=== PATIENT | male | born 1970 | race Caucasian/White ===

== ENCOUNTER 2019-05-16 10:41 | Day surgery (SDC) | payer BC ==
[2019-05-15 11:52] VITALS: BMI 39.3
[~2019-05-16 10:41] MED LIST: LACTATED RINGERS 1,000 ML IV SCH; SODIUM CHLORIDE 0.9% 1,000 ML IV SCH
[2019-05-16 11:03] VITALS: RESP 16; TEMP 97.8
[2019-05-16 11:18] LABS: African American GFR (CKD) >90 (>60 ml/min/1.73 sqM); Anion Gap 7 mmol/L; Blood Urea Nitrogen 15 mg/dL (9-20); Calcium 9.4 mg/dL (8.4-10.2); Carbon Dioxide 23 mmol/L (22-30); Chloride 108 mmol/L (98-107); Glucose 98 mg/dL (74-99); Non-African American GFR(CKD) >90 (>60 ml/min/1.73 sqM); Potassium 5.1 mmol/L (3.5-5.1); Sodium 138 mmol/L (137-145)
[2019-05-16] MEDS ORDERED: PROPOFOL 10 MG/ML 20 ML VIAL IV ONE (11:47)
--- NOTE | 2019-05-16 12:03 | P.PCN ---
<Ruth Ann Peralta - Last Filed: 05/16/19 12:03> Preoperative Diagnosis: Diagnosis: Persistent symptomatic atrial fibrillation Patient underwent electrical cardioversion under anesthesia A 360 J biphasic shock in the AP configuration was used to successfully converted the patient to sinus rhythm, no postconversion pause Patient is currently in sinus rhythm with rates in the 70s Patient tolerated the procedure well without any acute complications Plan Increase metoprolol to 75 mg twice a day Continue anticoagulation Follow-up with the patient in one week, hopefully he will maintain sinus rhythm and we can reassess his LV function in sinus rhythm <Rober Hughes - Last Filed: 05/16/19 12:05> Preoperative Diagnosis: We will see him this Wednesday. We will reassess his LV function to see if there is an improvement of his LV function and will initiate flecainide at least 50 mg bid twice daily he function is normal
[2019-05-16 13:07] VITALS: BP 132/72; PULSE 72
== END 2019-05-16 13:09 | disposition home or self-care (01) ==
LOC: CATHCVL 10:41
PROVIDERS: ATTEND Internal Medicine Clinical Cardiac Electrophysiology
DX: I48.19 Other persistent atrial fibrillation (principal); K08.89 Other specified disorders of teeth and supporting structures; E66.01 Morbid (severe) obesity due to excess calories; Z68.39 Body mass index [BMI] 39.0-39.9, adult; Z79.01 Long term (current) use of anticoagulants; Z79.899 Other long term (current) drug therapy; Z90.49 Acquired absence of other specified parts of digestive tract
CPT/HCPCS: 92960; 80048; J2704

== ENCOUNTER 2020-04-04 07:33 | Day surgery (SDC) | payer BC ==
[2020-03-26 16:51] VITALS: BMI 40.6
[~2020-04-04 07:33] MED LIST changes: -LACTATED RINGERS 1,000 ML IV SCH
[2020-04-04] MEDS ORDERED: SODIUM CHLORIDE 0.9% 1,000 ML IV ONE (07:42)
[2020-04-04] MEDS ORDERED: PHENYLEPHRINE 10 MG/ML VIAL ONE (09:27)
[2020-04-04] MEDS ORDERED: SUCCINYLCHOLINE CHLORIDE 100 MG/5 ML SYR IV ONE (09:27)
[2020-04-04] MEDS ORDERED: GLYCOPYRROLATE 0.2 MG/ML 2 ML VIAL ONE (09:27)
[2020-04-04] MEDS ORDERED: NEOSTIGMINE 1 MG/ML 10 ML VIAL ONE (09:27)
[2020-04-04] MEDS ORDERED: ROCURONIUM 10 MG/ML (10 ML VIAL) IV ONE (09:27)
[2020-04-04] MEDS ORDERED: FUROSEMIDE 10 MG/ML 2 ML VIAL ONE (09:27)
[2020-04-04] MEDS ORDERED: fentaNYL (PF) 50 MCG/ML 2 ML AMP ONE (09:27)
[2020-04-04] MEDS ORDERED: HEPARIN SODIUM,PORCINE 10,000 UNIT/ML 1 ML VIAL ONE (09:27)
[2020-04-04] MEDS ORDERED: MIDAZOLAM 2 MG/2 ML VIAL ONE (09:27)
[2020-04-04] MEDS ORDERED: LIDOCAINE 1% INJ 10MG/ML (20 ML MDV) ONE ×2 (09:27→09:47)
[2020-04-04] MEDS ORDERED: ONDANSETRON 4 MG/2 ML VIAL ONE (09:27)
[2020-04-04] MEDS ORDERED: PROPOFOL 10 MG/ML 20 ML VIAL IV ONE (09:27)
[2020-04-04] MEDS ORDERED: PROTAMINE SULFATE 10 MG/ML 5 ML VIAL IV ONE (09:27)
[2020-04-04] MEDS ORDERED: LIDOCAINE 1% INJ 10MG/ML (20 ML MDV) SQ ONE (10:37)
[2020-04-04] MEDS ORDERED: HEPARIN SOD,PORK IN 0.45% NACL 25,000 UNIT in 0.45% NACL 1 250ML.BAG IV ONE (10:45)
[2020-04-04] MEDS ORDERED: LACTATED RINGERS 1,000 ML IV ONE (11:05)
[2020-04-04] MEDS ORDERED: HEPARIN SODIUM (1,000 UNIT/ML) 1,000 UNIT in SODIUM CHLORIDE 0.9% 1,000 ML IRRIGATION ONE ×2 (12:20→15:15)
[2020-04-04] MEDS ORDERED: IOPAMIDOL-370 100ML BTL INJ ONE (12:23)
[2020-04-04] MEDS ORDERED: ACETAMINOPHEN IV (For NPO) 1,000 MG in EMPTY BAG 1 BAG IVPB ONE (15:51)
[2020-04-04] MEDS ORDERED: ACETAMINOPHEN TAB 325 MG TAB PO PRN (15:51)
[2020-04-04] MEDS ORDERED: HYDROcodone/APAP 5-325MG 1 EACH TAB PO PRN (15:51)
--- NOTE | 2020-04-04 16:05 | P.EPPROC ---
- EP Procedure Note Electrophysiology Procedure Note: Procedure A. fib ablation, persistent, associated with cardio myopathy Diagnosis Atrial fibrillation, symptomatic, refractory to therapy persistent, associated with cardio myopathy Result No left atrial appendage mass seen on intracardiac echo Successful A. fib ablation/pulmonary vein isolation of all veins using cryo- ablation Complete entrance block in all 4 veins confirmed No evidence for phrenic nerve injury Linear ablation posterior septum, posterior to the transseptal puncture site Related ablation of the roof of the LAD Linear ablation mitral isthmus Voltage mapping and high output pacing over RF line's to ensure completeness of ablation Esophageal deflection YES Electrical cardioversion with a synchronized shock across the chest YES Procedure details Patient was brought to the EP lab in a fasting state. Written informed consent was obtained prior to the procedure. Procedure performed under general anesthesia After initial muscle relaxant use, muscle relaxants were not given thereafter in order to assess phrenic nerve during procedure. Patient prepped and draped as per protocol Full cryo-set up with standard preparation of the cryoablation tools done. Femoral Venous access obtained on the right and left groins Venous and arterial Sheaths placed. Diagnostic catheters for the high right atrium, phrenic nerve stimulation and pacing, His bundle, RV and coronary sinus placed Intracardiac echo catheter placed. Long sheath placed in the right atrium Left and right transseptal catheterization performed under intracardiac echo guidance. Intravenous heparin with aCT above 300 Later, catheter positioning and balloon positioning in the left atrium, under intracardiac echo guidance Diagnostic EP study with Coronary sinus pacing and recording Baseline measurements QRS 91, OR interval 168 ms, sinus cycle length 911 ms and QT interval 427 ms Atrial pacing performed from the high right atrium and the coronary sinus Transseptal catheterization performed RA pressure 15/9/12 LA pressure 19/10/70 Transseptal catheterization performed with standard sheath. The cryoablation sheath was then placed with an over the wire exchange without any acute complications. All 4 pulmonary veins were isolated in the following sequence: Left superior f ollowed by left inferior followed by right superior followed by right inferior The cryo-ablation balloon was placed at the os of each vein 1.5 mL of IV dye was injected to confirm an occluded vein Goal during cryoablation was to achieve complete occlusion of the pulmonary vein, achieve -30 degrees C at 30 seconds and achieve -40 degrees C at 60 seconds and a time to effect of less than 60-90 seconds, . If not the balloon was repositioned to obtain this result After completion of Cryoblation with durations from 180-240 seconds, entrance block was confirmed with the Attain circular catheter in a roving fashion around the antrum of the pulmonary veins Phrenic nerve pacing was performed from the SVC, right innominate vein area and diaphragm voltage was monitored. Diaphragmatic contractions were also monitored manually for strength of contraction. Parameter goals for each cryo freeze Complete occlusion of the appropriate vein -30 degrees C by 30 seconds -40 degrees C by 60 seconds Minimum between minus 40-55 degrees C Thaw time greater than 10 seconds Balloon visualized by intracardiac echo The esophagus was intubated. Esophageal Temperature monitoring with a CIRCA catheter formed. Esophageal deflection for hypothermia of the esophagus below 30 degrees C Left superior pulmonary vein Complete isolation, entrance block Left inferior pulmonary vein Complete isolation, entrance block Right superior pulmonary vein, during phrenic nerve pacing Complete isolation, entrance block Right inferior pulmonary vein, during phrenic nerve pacing Complete isolation, entrance block At the end of the procedure the Achieve catheter was once again used to check for entrance block Phrenic nerve stimulation was performed to confirm diaphragmatic stimulation the end of the procedure Cine fluoroscopy was performed at the very end of the procedure to confirm movement of both diaphragms with inspiration and expiration The cryo sheath was exchanged for a standard sheath RF mapping and ablation catheter was placed 3-D anatomic mapping was performed The veins are completely isolated With the catheter was manipulated in the anterior LA wall close to the roof, somewhat organized atrial fibrillation was induced Mapping was performed new areas of atrial fibrillation noted in other areas of organized atrial activity The roof appear to be involved and the left side of the roof showed atrial fibrillation on intracardiac electrograms Linear ablation of the left atrial roof was performed. This was a long roof diagnoses the patient had a dilated left atrium Complete anatomic line was made This was later interrogated with both high output pacing as well as with voltage mapping once the patient was in sinus rhythm at the end of the procedure and completeness of the line was ensured Linear ablation along the posterior septum from the roof down to the right inferior pulmonary vein. Scar mapping and high output pacing was performed to ensure completeness of the line when in sinus rhythm His ultrasound organization The mitral isthmus line was made This is also completed and once in sinus rhythm would a mapping was performed as well as high output pacing was performed interrogated Once this line was made the patient had 2 different atrial tachycardia and earliest activation site was in the anterior septum This seemed to be Cipriano reentrant circuit in this area and RF ablation was performed, focal ablation. This is close to the mitral annulus and RF ablation was extended to the mitral annulus anteriorly Patient remained in atrial fibrillation after this after being in organized rhythm Electrical cardioversion performed The pulmonary veins and RF lines were interrogated and found to be complete At the end of the procedure the patient was extubated Heparin was reversed Venous sheaths were removed and hemostasis assured Procedures performed (PVI - CRYO Ablation) Diagnostic EP study CS pacing and recording Left and right transseptal catheterization Catheter the mapping of the tachycardia (NOT 3D mapping) Intracardiac echocardiography Pulmonary vein isolation with transseptal and comprehensive EPS, [id number] Left atrial roof line, +[id number] Linear ablation, left atrium septum, +[id number] Linear ablation for mitral reentry Focal ablation inferior anterior LA wall Electrical cardioversion with a synchronized shock across the chest [id number]
--- NOTE | 2020-04-04 16:08 | P.PRLE ---
RE: Jer Dimas Dear Dr. Gino Randle has experienced breakthrough episodes of atrial fibrillation on flecainide. During persistent atrial fibrillation he developed a cardiomyopathy which has resolved with rhythm control of A. fib Brought in today for an A. fib ablation. Pulmonary vein isolation and linear ablation was performed in the left atrium in the septum, left atrial roof and mitral isthmus. Focal ablation was performed in the anterior LA wall This was a long extended procedure At this time I would continue ELIQUIS and reduce the dose of flecainide to 50 mrem twice daily Intracardiac echocardiography revealed normalized LV systolic function I will see him again in follow-up in a week's time Thank you for entrusting me with the care of the patient Warm regards Sincerely Rober Hughes
[2020-04-04] MEDS ORDERED: HYDROmorphone 0.5 MG/0.5 ML SYRINGE IVP ONE (16:27)
[2020-04-04] MEDS: APIXABAN 5 MG TAB PO SCH (20:02)
[2020-04-04] MEDS: FLECAINIDE 50 MG TAB PO SCH (20:02)
[2020-04-04 20:14] VITALS: RESP 18
[2020-04-05 08:07] VITALS: BP 128/84; PULSE 87; TEMP 98.2
[2020-04-05] MEDS: APIXABAN 5 MG TAB PO SCH (08:54)
[2020-04-05] MEDS: FLECAINIDE 50 MG TAB PO SCH (08:54)
[2020-04-05] MEDS ORDERED: METOPROLOL SUCCINATE (ER) 50 MG TAB.ER.24H PO SCH (09:00)
--- NOTE | 2020-04-05 10:34 | P.DS ---
Providers Date of admission: 03/25/2020 Attending physician: Rober Hughes Primary care physician: Saleem Christian MD Hospital Course: The patient is a 49-year-old male with past medical history of persistent atrial fibrillation and tachycardia induced cardiomyopathy, who electively presented for atrial fibrillation ablation. The patient went through an extensive cryoablation with linear ablation on the posterior septum, linear roof ablation in the left atrium, and linear ablation of the mitral isthmus. The patient tolerated the procedure well and recovered in observation overnight. On exam this morning, the patient is resting comfortably in bed. He denies any chest pain or chest pressure. No shortness of breath, palpitations, dizziness or vertigo. He does have some tenderness in his right groin. He also reports a mildly sore throat. GENERAL: Well-appearing, well-nourished obese male in no acute distress. NECK: Supple without JVD or thyromegaly. LUNGS: Breath sounds clear to auscultation bilaterally. Respiration equal and unlabored. No wheezes, rales or rhonchi. HEART: Regular rate and rhythm without murmurs, rubs or gallops. S1 and S2 heard. EXTREMITIES: Normal range of motion, no edema. No clubbing or cyanosis. Peripheral pulses intact and strong. Bilateral groin sites are dry and intact. Mild tenderness to palpation. No hematoma. VITALS: Blood pressure 128/84, heart rate 87, temp 98.2, respiratory rate 18 TELEMETRY: Sinus mechanism IMPRESSION: #1 persistent atrial fibrillation, status post cryo and linear ablations #2 history of arrhythmia induced cardiomyopathy PLAN: Reduce flecainide 50 mg twice daily Continue all other cardiac medications including anticoagulation Follow-up in the office in 1-2 weeks Procedures: Pulmonary vein isolate and linear radiofrequency ablation Plan - Discharge Summary Discharge Rx Participant: Yes New Discharge Prescriptions: New Flecainide [Tambocor] 50 mg PO Q12HR #180 tablet Discontinued Flecainide Acetate [Tambocor] 100 mg PO Q12HR No Action Apixaban [Eliquis] 5 mg PO BID Metoprolol Succinate (ER) [Toprol Xl] 50 mg PO DAILY Discharge Medication List Apixaban [Eliquis] 5 mg PO BID 05/15/19 [History] Metoprolol Succinate (ER) [Toprol Xl] 50 mg PO DAILY 03/26/20 [History] Flecainide [Tambocor] 50 mg PO Q12HR #180 tablet 04/04/20 [Rx] Follow up Appointment(s)/Referral(s): Rober Hughes MD [STAFF PHYSICIAN] - 1 Week (1-[address] Hughes or nurse practitoner)
== END 2020-04-05 12:22 | disposition home or self-care (01) ==
LOC: CATHEP 07:33 → 1SOBS 15:40 → CATHEP 04-05 12:22
PROVIDERS: ATTEND Internal Medicine Clinical Cardiac Electrophysiology
DX: I48.19 Other persistent atrial fibrillation (principal); I42.9 Cardiomyopathy, unspecified; E66.01 Morbid (severe) obesity due to excess calories; Z79.01 Long term (current) use of anticoagulants; Z79.899 Other long term (current) drug therapy; Z90.49 Acquired absence of other specified parts of digestive tract; Z68.41 Body mass index [BMI] 40.0-44.9, adult
CPT/HCPCS: 85347; 92960; 93662; 93613; 93656; 93657; C1759; C1769 ×5; C1894 ×2; C1730 ×2; C1893; C1733; C1766; C1732; J2250; J2720; J1644 ×3; J1940; J2370; J2710; J2405; J2001; J3010; J0330; J2704; J1170; Q9967

== ENCOUNTER → 2020-05-07 | Outpatient (CLI) | payer BC ==
[2020-05-07 15:43] LABS: HCT 42.1 % (39.0-53.0); HGB 14.8 gm/dL (13.0-17.5); MCH 31.7 pg (25.0-35.0); MCHC 35.1 g/dL (31.0-37.0); MCV 90.3 fL (80.0-100.0); Mean Platelet Volume 6.9; Platelet Count 224 k/uL (150-450); RBC 4.66 m/uL (4.30-5.90); RDW 13.3 % (11.5-15.5); WBC 7.8 k/uL (3.8-10.6)
== END | disposition home or self-care (01) ==
LOC: LABPAT 14:29
PROVIDERS: ATTEND Internal Medicine Clinical Cardiac Electrophysiology
DX: Z01.818 Encounter for other preprocedural examination (principal); I48.19 Other persistent atrial fibrillation
CPT/HCPCS: 36415; 85027

== ENCOUNTER 2020-05-09 10:36 | Day surgery (SDC) | payer BC ==
[2020-05-07 08:40] VITALS: BMI 40.6
[2020-05-09 11:09] VITALS: TEMP 98
[2020-05-09] MEDS ORDERED: PROPOFOL 10 MG/ML 20 ML VIAL IV ONE (11:24)
[2020-05-09] MEDS ORDERED: LIDOCAINE 1% INJ 10MG/ML (20 ML MDV) ONE (11:24)
--- NOTE | 2020-05-09 11:48 | P.EPPROC ---
- EP Procedure Note Electrophysiology Procedure Note: Diagnosis Atrial tachycardia with 2-1 AV block with RVR, unresponsive to medical treatment Patient status post PVI and linear ablation in the left atrium Electrical cardioversion Under conscious sedation with anesthesia in attendance, and electrical cardioversion was performed with a 360 J biphasic shock in the AP configuration Successful conversion to sinus rhythm Plan Continue anticoagulation continue low-dose flecainide Follow Dr. Hughes in one month
[2020-05-09 12:42] VITALS: BP 132/77; RESP 16
[2020-05-09 12:44] VITALS: PULSE 88
== END 2020-05-09 12:40 | disposition home or self-care (01) ==
LOC: CATHEP 10:36
PROVIDERS: ATTEND Internal Medicine Clinical Cardiac Electrophysiology
DX: I48.19 Other persistent atrial fibrillation (principal); I42.0 Dilated cardiomyopathy; S30.1XXA Contusion of abdominal wall, initial encounter; E66.9 Obesity, unspecified; Z79.899 Other long term (current) drug therapy; Z79.01 Long term (current) use of anticoagulants; Z88.5 Allergy status to narcotic agent; Z68.41 Body mass index [BMI] 40.0-44.9, adult; X58.XXXA Exposure to other specified factors, initial encounter
CPT/HCPCS: 93005; 92960; J2001; J2704

== ENCOUNTER 2020-07-25 10:39 | Day surgery (SDC) | payer BC ==
[2020-07-22 08:56] VITALS: BMI 40.6
[~2020-07-25 10:39] MED LIST changes: +LACTATED RINGERS 1,000 ML IV SCH
[2020-07-25] MEDS ORDERED: SODIUM CHLORIDE 0.9% 1,000 ML IV ONE ×2 (10:56→14:20)
[2020-07-25 11:47] LABS: African American GFR (CKD) >90 (>60 ml/min/1.73 sqM); Anion Gap 8 mmol/L; Blood Urea Nitrogen 18 mg/dL (9-20); Calcium 9.6 mg/dL (8.4-10.2); Carbon Dioxide 23 mmol/L (22-30); Chloride 108 mmol/L (98-107); Glucose 92 mg/dL (74-99); Non-African American GFR(CKD) >90 (>60 ml/min/1.73 sqM); Potassium 4.8 mmol/L (3.5-5.1); Sodium 139 mmol/L (137-145)
[2020-07-25] MEDS ORDERED: ONDANSETRON 4 MG/2 ML VIAL ONE (12:20)
[2020-07-25] MEDS ORDERED: MIDAZOLAM 2 MG/2 ML VIAL ONE (12:20)
[2020-07-25] MEDS ORDERED: NEOSTIGMINE 1 MG/ML 10 ML VIAL ONE (12:20)
[2020-07-25] MEDS ORDERED: PHENYLEPHRINE-0.9% NACL SYG 1,000 MCG/10 ML SYRINGE ONE (12:20)
[2020-07-25] MEDS ORDERED: fentaNYL (PF) 50 MCG/ML 2 ML AMP ONE (12:20)
[2020-07-25] MEDS ORDERED: HEPARIN SODIUM,PORCINE 10,000 UNIT/ML 1 ML VIAL ONE (12:20)
[2020-07-25] MEDS ORDERED: ROCURONIUM 10 MG/ML (5 ML VIAL) IV ONE (12:20)
[2020-07-25] MEDS ORDERED: LIDOCAINE 1% INJ 10MG/ML (20 ML MDV) ONE ×3 (12:20→13:49)
[2020-07-25] MEDS ORDERED: PROPOFOL 10 MG/ML 20 ML VIAL IV ONE (12:20)
[2020-07-25] MEDS ORDERED: ceFAZolin 1,000 MG VIAL ONE (12:20)
[2020-07-25] MEDS ORDERED: PROTAMINE SULFATE 10 MG/ML 5 ML VIAL IV ONE (12:20)
[2020-07-25] MEDS ORDERED: GLYCOPYRROLATE 0.2 MG/ML 2 ML VIAL ONE (12:20)
[2020-07-25] MEDS ORDERED: SUCCINYLCHOLINE CHLORIDE 100 MG/5 ML SYR IV ONE (12:20)
[2020-07-25] MEDS ORDERED: FUROSEMIDE 10 MG/ML 2 ML VIAL ONE (12:20)
[2020-07-25] MEDS ORDERED: SODIUM CHLORIDE 0.9% 100 ML BAG ONE (12:20)
[2020-07-25] MEDS ORDERED: HEPARIN SOD,PORK IN 0.45% NACL 25,000 UNIT in 0.45% NACL 1 250ML.BAG IV ONE ×2 (13:06)
[2020-07-25] MEDS ORDERED: LIDOCAINE 1% INJ 10MG/ML (20 ML MDV) SQ ONE (13:09)
[2020-07-25] MEDS ORDERED: HEPARIN SODIUM (1,000 UNIT/ML) 1,000 UNIT in SODIUM CHLORIDE 0.9% 1,000 ML IRRIGATION ONE (15:20)
[2020-07-25] MEDS ORDERED: ACETAMINOPHEN TAB 325 MG TAB PO PRN (18:24)
[2020-07-25] MEDS ORDERED: ACETAMINOPHEN IV (For NPO) 1,000 MG in EMPTY BAG 1 BAG IVPB ONE (18:29)
--- NOTE | 2020-07-25 19:00 | P.EPPROC ---
- EP Procedure Note Electrophysiology Procedure Note: Indication Atrial tachycardia following successful A. fib ablation, refractory to medical treatment including flecainide He underwent successful pulmonary and isolation, ablation of the posterior left atrial septum, left atrial roof and mitral isthmus, previously At that time elected cardioversion was performed for persistent atrial fibrillation Procedures performed Diagnostic EP study CS pacing and recording 3-D electro-anatomic mapping RF ablation of epicardial atrial tachycardia RF ablation in the roof, linear RF ablation between the right superior and right inferior pulmonary veins, linear, both anterior and posterior RF ablation in the anterior septum Transseptal catheterization Intracardiac echo Electrical cardioversion at the end of the procedure Radiographic evaluation of the esophagus and esophageal deflection Post procedure Diagnosis Epicardial atrial tachycardia in the upper left atrial posterior wall area, refractory to endocardial ablation Details Patient was in an atrial tachycardia the start of the study with upright T waves in V1 and upright P waves in the inferior leads and upright in lead 1 Venous access in the left and right femoral veins. Venous sheaths were placed. Mapping and ablation cath was intracardiac echo catheter is diagnostic cath was placed in the high right atrium coronary sinus His bundle area Pentaray catheter and RF ablation catheter placed Coronary sinus access was very difficult from the femoral veins and therefore a 6-Romansh sheath was placed in the left axillary vein. Via this a diagnostic CS cath was placed in the coronary sinus with comfortably Atrial tachycardia cycle length to 75 ms. Later sinus cycle length 953 ms ER interval 170 ms QRS 91 ms and QT 423 ms AH interval 76 ms and HV interval 48 ms The tachycardia appeared to be a left atrial tachycardia. The coronary sinus electrograms were neither eccentric nonconcentric Intracardiac echocardiography was performed. No masses in the left atrial appendage No pericardial effusion Preserved LV systolic function in the left ventricle Fossa ovalis identified Transseptal access obtained Sheath exchanged for Vizigo sheaths later Pentaray catheter placed in the left atrium Detailed electrical anatomic mapping of the left atrium performed Voltage mapping performed Activation mapping performed Pulmonary veins were completely isolated from previous ablation There appeared to be a gap In the left atrial roof line with the earliest activation just behind the left atrial roof line in the upper part of the mid posterior wall in juxtaposition to the roof Slightly anterior RF line was made along the roof with an irrigated tip catheter, 25 W, Vizigo sheath Good power would contact force and good stability achieved A complete RF line of block was made the tachycardia cycle length changed minimally. The activation pattern did not change either Therefore repeat electro-anatomic mapping was performed and this time it appeared to be a somewhat broad focal area of activation in the upper posterior wall chest behind the roof line. This area of activation was seen even in the previous mapped since it was so close to the roof and that there was a gap in the roof line it appeared to be simply a left atrial roof tachycardia. However this time it appeared to be a broad focal area of activation. Unipolar electrograms here with deep negative and sharply negative The esophagus was identified with the barium study. This was just a hint of mid left atrium and an endoscope was placed in the esophagus was deflected first words the right side and later towards the left side RF ablation was applied at the earliest site within was brought area of activation with unipolar electrograms were negative taking care that fever away from the esophagus. RF ablation the side did not result in any lengthening of the tachycardia nor didn't result in termination Therefore the decision was made to encircle this earliest activation site. The esophagus was deflected the other way and the site was successfully and completely encircled with RF ablations. This line was joint to the right superior pulmonary vein posterior Despite that the tachycardia continued RF ablations applied within this area away from the esophagus with a power of about 25 W This tachycardia did not terminate Repeat 3 to L after anatomic mapping was performed in the left atrium and also in the right atrium and it appeared that the earliest site was in the left atrium, posterior to the roof in the upper posterior wall. We specifically sought for cavo tricuspid reentry there was no evidence for cavo tricuspid reentry. The post pacing interval was greater than 100 ms and the activation mapping did not support carlos alberto- tricuspid reentry There was evidence of electrical activity in between the right superior and right inferior pulmonary veins in the umberto and anteriorly as well as posteriorly ablation was performed and the umberto between the right and left pulmonary veins was isolated This septum was mapped in the upper septum was also ablated in the left atrium in areas There was no evidence for carlos alberto mitral reentry either Electrical cardioversion was performed. A 360 J biphasic shock converted the patient sinus rhythm All catheters were then removed and patient was transferred back to telemetry. Patient received IV heparin through the procedure There was no evidence for any pericardial effusion on intracardiac echo, at the end of study Radiographic evaluation of the esophagus was performed after completion. There was no evidence for esophageal ulceration tear or perforation Barium was successfully suctioned out from the esophagus at the end of the procedure, prior to extubation
[2020-07-25] MEDS: DRONEDARONE 400 MG TAB PO SCH (20:01)
[2020-07-25] MEDS: APIXABAN 5 MG TAB PO SCH (20:13)
[2020-07-26] MEDS: DRONEDARONE 400 MG TAB PO SCH (07:21)
[2020-07-26] MEDS: APIXABAN 5 MG TAB PO SCH (07:21)
--- NOTE | 2020-07-26 07:32 | P.DS ---
Providers Attending physician: Rober Hughes Primary care physician: [facility] Course: Patient is doing fairly well. He is a mild backache and mild sore throat but he has no chest discomfort no pleuritic chest discomfort No dizziness lightheadedness no shortness of breath He is ambulating around the room The sutures in the groins have been removed. No swelling no tenderness 40 catheter is out On examination afebrile 97.7F, pulse rate in the 80s sinus mechanism on teleme try Blood pressure 118/69 and 111/75 mmHg Breath sounds are clear no rhonchi no crackles Normal heart sounds normal S1 normal S2 no murmurs Extremities warm no edema Impression Epicardial atrial tachycardia in the upper posterior wall just posterior to the LAD roofline This is is residual atrial tachycardia after a complete A. fib ablation Pulmonary veins remain isolated The previous roofline did have a gap in the mid segment and this was completed but the tachycardia continue since it is a separate and distinct tachycardia in the upper, posterior LA wall Failed flecainide History of tachycardia and bradycardia myopathy with improvement in LV systolic function now Suggest Continue ELIQUIS 5 mg twice daily Switched to Multaq 400 mg twice daily Hold metoprolol Discontinue flecainide completely I will see him again in about a week Plan - Discharge Summary Discharge Rx Participant: No New Discharge Prescriptions: Discontinued Metoprolol Succinate (ER) [Toprol Xl] 75 mg PO DAILY Flecainide [Tambocor] 100 mg PO Q12HR #180 tablet No Action Apixaban [Eliquis] 5 mg PO BID Discharge Medication List Apixaban [Eliquis] 5 mg PO BID 05/15/19 [History] Follow up Appointment(s)/Referral(s): Rober Hughes MD [STAFF PHYSICIAN] - 1 Week Activity/Diet/Wound Care/Special Instructions: My EP instructions Post EP study - Ablation instructions 1. Keep access sites dry for 2 days. 2. No heavy lifting or straining for 2 days. 3. Avoid bending the hips repeatedly for 2 days. 4. You may go up and down stairs slowly Call if the following is noted 1. Bleeding, increasing swelling or pain at the access sites. 2. Increasing chest discomfort, especially upon taking a deep breath. 3. Increasing shortness of breath, at rest or with exertion. 4. Undue cough / phlegm 5. Difficulty or pain while swallowing. 6. Pain or change in color in the extremities. 7. Fever, chills, rigors. 8. Increasing headache or neurologic symptoms. 9. Dizziness, fainting, palpitations Start flecainide Start Multaq stop metoprolol Discharge Disposition: HOME SELF-CARE
[2020-07-26 14:51] VITALS: BP 116/75; PULSE 81; RESP 16; TEMP 97.9
== END 2020-07-26 15:10 | disposition home or self-care (01) ==
LOC: CATHEP 10:39 → 6NMEDSUR 18:33 → CATHEP 07-26 15:10
PROVIDERS: ATTEND Internal Medicine Clinical Cardiac Electrophysiology
DX: I47.1 Supraventricular tachycardia (principal); I48.19 Other persistent atrial fibrillation; I42.9 Cardiomyopathy, unspecified; Z79.01 Long term (current) use of anticoagulants; Z79.899 Other long term (current) drug therapy
CPT/HCPCS: 85347; 92960; 93662; 93613; 93653; 93655; 80048; 87635; C1894; C1769 ×4; C1766; C1730 ×2; C1731; C1759; C1893; C1732; J2001; J1644 ×2; J0131

== ENCOUNTER 2023-08-28 12:38 | Inpatient (IN) | payer BC ==
--- NOTE | 2023-08-28 13:06 | ED ---
General Adult HPI - General Chief complaint: Weakness Stated complaint: Dizziness-Holter monitor Time Seen by Provider: 08/28/23 12:50 Source: patient Mode of arrival: ambulatory Limitations: no limitations - History of Present Illness Initial comments: 53-year-old male with past medical history of A-fib who presents emergency department reporting near syncope. He reports that he had a significant episode on Wednesday. He saw his back closer on who placed him on a heart monitor. He has intermittent A-fib. He has had previous cardiac ablations and cardioversions. He takes Multaq 400 mg twice daily and Eliquis. States has b een compliant with his medications. Today the patient had another significant episode of dizziness and near syncope and therefore decided to come into the emergency department for evaluation. Denies any chest pain. No recent medication changes. - Related Data Home Medications Medication Instructions Recorded Confirmed Apixaban [Eliquis] 5 mg PO BID 05/15/19 08/28/23 Dronedarone [Multaq] 400 mg PO BID-W/MEALS 08/28/23 08/28/23 Sildenafil Citrate 50 mg PO DAILY PRN 08/28/23 08/28/23 Spironolactone [Aldactone] 25 mg PO DAILY 08/28/23 08/28/23 Allergies Allergy/AdvReac Type Severity Reaction Status Date / Time No Known Allergies Allergy Verified 08/28/23 15:16 Review of Systems ROS Statement: Those systems with pertinent positive or pertinent negative responses have been documented in the HPI. ROS Other: All systems not noted in ROS Statement are negative. Past Medical History Past Medical History: Atrial Fibrillation, Hyperlipidemia, Hypertension Additional Past Medical History / Comment(s): PANCREATITIS 01/01/14, see Dr Hughes H & P History of Any Multi-Drug Resistant Organisms: None Reported Past Surgical History: Cardiac Ablation, Cholecystectomy Additional Past Surgical History / Comment(s): 01/01/14, cardioversion Past Anesthesia/Blood Transfusion Reactions: Previous Problems w/ Anesthesia, Motion Sickness, Postoperative Nausea & Vomiting (PONV) Additional Past Anesthesia/Blood Transfusion Reaction / Comment(s): MORPHINE C AUSES AGITATION, RESTLESSNESS, INSOMNIA Past Psychological History: No Psychological Hx Reported Smoking Status: Never smoker Past Alcohol Use History: None Reported Past Drug Use History: None Reported - Past Family History Mother Family Medical History: Congestive Heart Failure (CHF), Diabetes Mellitus General Exam Limitations: no limitations General appearance: alert, in no apparent distress Head exam: Present: atraumatic, normocephalic, normal inspection Eye exam: Present: normal appearance, PERRL, EOMI. Absent: scleral icterus, conjunctival injection, periorbital swelling ENT exam: Present: normal exam, mucous membranes moist Neck exam: Present: normal inspection. Absent: tenderness, meningismus, lymphadenopathy Respiratory exam: Present: normal lung sounds bilaterally. Absent: respiratory distress, wheezes, rales, rhonchi, stridor Cardiovascular Exam: Present: regular rate, normal rhythm, normal heart sounds. Absent: systolic murmur, diastolic murmur, rubs, gallop, clicks GI/Abdominal exam: Present: soft, normal bowel sounds. Absent: distended, tenderness, guarding, rebound, rigid Extremities exam: Present: normal inspection, full ROM, normal capillary refill. Absent: tenderness, pedal edema, joint swelling, calf tenderness Back exam: Present: normal inspection Neurological exam: Present: alert, oriented X3, CN II-XII intact Psychiatric exam: Present: normal affect, normal mood Skin exam: Present: warm, dry, intact, normal color. Absent: rash Course Vital Signs 08/28/23 08/28/23 08/28/23 12:43 13:09 15:00 Temperature 98 F Pulse Rate 90 97 89 Respiratory 20 18 16 Rate Blood Pressure 117/84 117/84 117/84 O2 Sat by Pulse 98 96 98 Oximetry 08/28/23 08/28/23 08/28/23 16:00 17:00 18:00 Temperature Pulse Rate 136 H 87 90 Respiratory 18 18 13 Rate Blood Pressure 127/87 116/79 116/83 O2 Sat by Pulse 96 97 96 Oximetry 08/28/23 08/28/23 08/28/23 19:18 21:00 22:35 Temperature Pulse Rate 90 89 89 Respiratory 19 19 19 Rate Blood Pressure 117/91 123/86 107/78 O2 Sat by Pulse 97 95 97 Oximetry Medical Decision Making - Medical Decision Making Was pt. sent in by a medical professional or institution (, PA, LOOP TACKER, urgent care, hospital, or fdc...) When possible be specific @ -No Did you speak to anyone other than the patient for history (EMS, parent, family, police, friend...)? What history was obtained from this source @ -With the patient's for history Did you review nursing and triage notes (agree or disagree)? Why? @ -I reviewed and agree with nursing and triage notes Were old charts reviewed (outside hosp., previous admission, EMS record, old EKG, old radiological studies, urgent care reports/EKG's, fdc records)? Report findings @ -No old charts were reviewed Differential Diagnosis (chest pain, altered mental status, abdominal pain women, abdominal pain men, vaginal bleeding, weakness, fever, dyspnea, syncope, headache, dizziness, GI bleed, back pain, seizure, CVA, palpatations, mental health, musculoskeletal)? @ -Differential Palpitations Ventricular arrhythmias, atrial arrhythmias, myocardial infarction, anemia, thyrotoxicosis, electrolyte imbalance, hypokalemia, pulmonary embolism, pulmonary disease, drugs, alcohol, anxiety, stress.... This is not meant to be an all-inclusive list. EKG interpreted by me (3pts min.). @ -Yes and demonstrates sinus rhythm with rate of 90. IL interval 191. QRS 94 . QTc of 405. No acute ST segment elevations or depressions X-rays interpreted by me (1pt min.). @ -Yes and demonstrates no acute process CT interpreted by me (1pt min.). @ -None done U/S interpreted by me (1pt. min.). @ -None done What testing was considered but not performed or refused? (CT, X-rays, U/S, labs)? Why? @ -None What meds were considered but not given or refused? Why? @ -None Did you discuss the management of the patient with other professionals (professionals i.e. , PA, LOOP TACKER, lab, RT, psych nurse, social work faculty member, military exchange wireless manager, teacher, licensed mortgage loan officer, leather case finisher)? Give summary @ -Spoke with Dr. Grant. He recommended giving the patient metoprolol 25 twice daily. States the patient may need an amiodarone drip if the Lopressor does not work Was smoking cessation discussed for >3mins.? @ -No Was critical care preformed (if so, how long)? @ -Yes, 35 minutes for management of rapid A-fib and nonsustained V. tach Were there social determinants of health that impacted care today? How? (Homelessness, low income, unemployed, alcoholism, drug addiction, transportation, low edu. Level, literacy, decrease access to med. care, group home, rehab)? @ -No Was there de-escalation of care discussed even if they declined (Discuss DNR or withdrawal of care, Hospice)? DNR status @ -No What co-morbidities impacted this encounter? (DM, HTN, Smoking, COPD, CAD, Cancer, CVA, ARF, Chemo, Hep., AIDS, mental health diagnosis, sleep apnea, morbid obesity)? @ -A-fib Was patient admitted / discharged? Hospital course, mention meds given and route, prescriptions, significant lab abnormalities, going to OR and other pertinent info. @ -Upon arrival patient seen and evaluated in room 2. Thorough history and physical exam was performed. Patient does have intermittent beats of rapid A- fib however he also has notable episodes of V. tach. Longest seen was 12 beats. Patient remains on the personnel monitor. He is placed on the ZOLL monitor. I did speak with Dr. Grant who recommends adding metoprolol 25 twice daily to the patient. He will be admitted. Patient agreeable to admission. Undiagnosed new problem with uncertain prognosis? @ -Yes Drug Therapy requiring intensive monitoring for toxicity (Heparin, Nitro, Insulin, Cardizem)? @ -No Were any procedures done? @ -No Diagnosis/symptom? @ -Near syncope, paroxysmal A-fib, nonsustained V. tach Acute, or Chronic, or Acute on Chronic? @ -Acute Uncomplicated (without systemic symptoms) or Complicated (systemic symptoms)? @ -Complicated Side effects of treatment? @ -No Exacerbation, Progression, or Severe Exacerbation? @ -No Poses a threat to life or bodily function? How? (Chest pain, [place], [place], pneumonia, PE, COPD, DKA, ARF, appy, cholecystitis, CVA, Diverticulitis, Homicidal, Suicidal, threat to staff... and all critical care pts) @ -Yes as patient is having several episodes of nonsustained A. tach - Lab Data Result diagrams: 08/30/23 03:11 08/29/23 20:18 Lab Results 08/28/23 08/28/23 08/28/23 Range/Units 12:57 12:57 12:57 WBC 8.4 (3.8-10.6) k/uL RBC 4.60 (4.30-5.90) m/uL Hgb 14.0 (13.0-17.5) gm/dL Hct 42.8 (39.0-53.0) % MCV 93.0 (80.0-100.0) fL MCH 30.5 (25.0-35.0) pg MCHC 32.8 (31.0-37.0) g/dL RDW 12.8 (11.5-15.5) % Plt Count 234 (150-450) k/uL MPV 7.1 Neutrophils % 70 % Lymphocytes % 22 % Monocytes % 5 % Eosinophils % 2 % Basophils % 0 % Neutrophils # 5.8 (1.3-7.7) k/uL Lymphocytes # 1.8 (1.0-4.8) k/uL Monocytes # 0.4 (0-1.0) k/uL Eosinophils # 0.1 (0-0.7) k/uL Basophils # 0.0 (0-0.2) k/uL PT 11.3 (10.0-12.5) sec INR 1.0 (<1.2) APTT 27.4 (22.0-30.0) sec Sodium 139 (137-145) mmol/L Potassium 4.1 (3.5-5.1) mmol/L Chloride 113 H (98-107) mmol/L Carbon Dioxide 20 L (22-30) mmol/L Anion Gap 6 mmol/L BUN 16 (9-20) mg/dL Creatinine 0.85 (0.66-1.25) mg/dL Est GFR (CKD-EPI)AfAm >90 (>60 ml/min/1.73 sqM) Est GFR (CKD-EPI)NonAf >90 (>60 ml/min/1.73 sqM) Glucose 95 (74-99) mg/dL Plasma Lactic Acid Tobin (0.7-2.0) mmol/L Calcium 8.7 (8.4-10.2) mg/dL Magnesium 2.0 (1.6-2.3) mg/dL Total Bilirubin 0.5 (0.2-1.3) mg/dL AST 21 (17-59) U/L ALT 18 (4-49) U/L Alkaline Phosphatase 68 (38-126) U/L Troponin I (0.000-0.034) ng/mL NT-Pro-B Natriuret Pep 2220 pg/mL Total Protein 6.4 (6.3-8.2) g/dL Albumin 3.6 (3.5-5.0) g/dL TSH 2.340 (0.465-4.680) mIU/L Urine Color Urine Appearance (Clear) Urine pH (5.0-8.0) Ur Specific Acker[place] (1.001-1.035) Urine Protein (Negative) Urine Glucose (UA) (Negative) Urine Ketones (Negative) Urine Blood (Negative) Urine Nitrite (Negative) Urine Bilirubin (Negative) Urine Urobilinogen (<2.0) mg/dL Ur Leukocyte Esterase (Negative) 08/28/23 08/28/23 08/28/23 Range/Units 12:57 13:03 13:11 WBC (3.8-10.6) k/uL RBC (4.30-5.90) m/uL Hgb (13.0-17.5) gm/dL Hct (39.0-53.0) % MCV (80.0-100.0) fL MCH (25.0-35.0) pg MCHC (31.0-37.0) g/dL RDW (11.5-15.5) % Plt Count (150-450) k/uL MPV Neutrophils % % Lymphocytes % % Monocytes % % Eosinophils % % Basophils % % Neutrophils # (1.3-7.7) k/uL Lymphocytes # (1.0-4.8) k/uL Monocytes # (0-1.0) k/uL Eosinophils # (0-0.7) k/uL Basophils # (0-0.2) k/uL PT (10.0-12.5) sec INR (<1.2) APTT (22.0-30.0) sec Sodium (137-145) mmol/L Potassium (3.5-5.1) mmol/L Chloride (98-107) mmol/L Carbon Dioxide (22-30) mmol/L Anion Gap mmol/L BUN (9-20) mg/dL Creatinine (0.66-1.25) mg/dL Est GFR (CKD-EPI)AfAm (>60 ml/min/1.73 sqM) Est GFR (CKD-EPI)NonAf (>60 ml/min/1.73 sqM) Glucose (74-99) mg/dL Plasma Lactic Acid Tobin 1.2 (0.7-2.0) mmol/L Calcium (8.4-10.2) mg/dL Magnesium (1.6-2.3) mg/dL Total Bilirubin (0.2-1.3) mg/dL AST (17-59) U/L ALT (4-49) U/L Alkaline Phosphatase (38-126) U/L Troponin I <0.012 (0.000-0.034) ng/mL NT-Pro-B Natriuret Pep pg/mL Total Protein (6.3-8.2) g/dL Albumin (3.5-5.0) g/dL TSH (0.465-4.680) mIU/L Urine Color Colorless Urine Appearance Clear (Clear) Urine pH 6.0 (5.0-8.0) Ur Specific Acker[place] 1.007 (1.001-1.035) Urine Protein Negative (Negative) Urine Glucose (UA) Negative (Negative) Urine Ketones Negative (Negative) Urine Blood Negative (Negative) Urine Nitrite Negative (Negative) Urine Bilirubin Negative (Negative) Urine Urobilinogen <2.0 (<2.0) mg/dL Ur Leukocyte Esterase Negative (Negative) 08/28/23 08/28/23 08/29/23 Range/Units 15:52 19:10 08:34 WBC 6.9 (3.8-10.6) k/uL RBC 4.89 (4.30-5.90) m/uL Hgb 14.9 (13.0-17.5) gm/dL Hct 45.4 (39.0-53.0) % MCV 92.8 (80.0-100.0) fL MCH 30.4 (25.0-35.0) pg MCHC 32.8 (31.0-37.0) g/dL RDW 12.8 (11.5-15.5) % Plt Count 245 (150-450) k/uL MPV 7.4 Neutrophils % 70 % Lymphocytes % 22 % Monocytes % 4 % Eosinophils % 2 % Basophils % 1 % Neutrophils # 4.9 (1.3-7.7) k/uL Lymphocytes # 1.5 (1.0-4.8) k/uL Monocytes # 0.3 (0-1.0) k/uL Eosinophils # 0.1 (0-0.7) k/uL Basophils # 0.1 (0-0.2) k/uL PT (10.0-12.5) sec INR (<1.2) APTT (22.0-30.0) sec Sodium (137-145) mmol/L Potassium (3.5-5.1) mmol/L Chloride (98-107) mmol/L Carbon Dioxide (22-30) mmol/L Anion Gap mmol/L BUN (9-20) mg/dL Creatinine (0.66-1.25) mg/dL Est GFR (CKD-EPI)AfAm (>60 ml/min/1.73 sqM) Est GFR (CKD-EPI)NonAf (>60 ml/min/1.73 sqM) Glucose (74-99) mg/dL Plasma Lactic Acid Tobin (0.7-2.0) mmol/L Calcium (8.4-10.2) mg/dL Magnesium (1.6-2.3) mg/dL Total Bilirubin (0.2-1.3) mg/dL AST (17-59) U/L ALT (4-49) U/L Alkaline Phosphatase (38-126) U/L Troponin I <0.012 <0.012 (0.000-0.034) ng/mL NT-Pro-B Natriuret Pep pg/mL Total Protein (6.3-8.2) g/dL Albumin (3.5-5.0) g/dL TSH (0.465-4.680) mIU/L Urine Color Urine Appearance (Clear) Urine pH (5.0-8.0) Ur Specific [place] (1.001-1.035) Urine Protein (Negative) Urine Glucose (UA) (Negative) Urine Ketones (Negative) Urine Blood (Negative) Urine Nitrite (Negative) Urine Bilirubin (Negative) Urine Urobilinogen (<2.0) mg/dL Ur Leukocyte Esterase (Negative) 08/29/23 08/29/23 08/29/23 Range/Units 08:34 15:14 15:14 WBC 7.8 (3.8-10.6) k/uL RBC 4.89 (4.30-5.90) m/uL Hgb 15.1 (13.0-17.5) gm/dL Hct 45.4 (39.0-53.0) % MCV 92.8 (80.0-100.0) fL MCH 30.9 (25.0-35.0) pg MCHC 33.3 (31.0-37.0) g/dL RDW 12.8 (11.5-15.5) % Plt Count 235 (150-450) k/uL MPV 7.2 Neutrophils % 64 % Lymphocytes % 27 % Monocytes % 5 % Eosinophils % 2 % Basophils % 1 % Neutrophils # 4.9 (1.3-7.7) k/uL Lymphocytes # 2.1 (1.0-4.8) k/uL Monocytes # 0.4 (0-1.0) k/uL Eosinophils # 0.2 (0-0.7) k/uL Basophils # 0.1 (0-0.2) k/uL PT 10.8 (10.0-12.5) sec INR 1.0 (<1.2) APTT 26.1 (22.0-30.0) sec Sodium 138 (137-145) mmol/L Potassium 4.2 (3.5-5.1) mmol/L Chloride 111 H (98-107) mmol/L Carbon Dioxide 20 L (22-30) mmol/L Anion Gap 7 mmol/L BUN 14 (9-20) mg/dL Creatinine 0.83 (0.66-1.25) mg/dL Est GFR (CKD-EPI)AfAm >90 (>60 ml/min/1.73 sqM) Est GFR (CKD-EPI)NonAf >90 (>60 ml/min/1.73 sqM) Glucose 96 (74-99) mg/dL Plasma Lactic Acid Tobin (0.7-2.0) mmol/L Calcium 9.0 (8.4-10.2) mg/dL Magnesium (1.6-2.3) mg/dL Total Bilirubin (0.2-1.3) mg/dL AST (17-59) U/L ALT (4-49) U/L Alkaline Phosphatase (38-126) U/L Troponin I (0.000-0.034) ng/mL NT-Pro-B Natriuret Pep pg/mL Total Protein (6.3-8.2) g/dL Albumin (3.5-5.0) g/dL TSH (0.465-4.680) mIU/L Urine Color Urine Appearance (Clear) Urine pH (5.0-8.0) Ur Specific [place] (1.001-1.035) Urine Protein (Negative) Urine Glucose (UA) (Negative) Urine Ketones (Negative) Urine Blood (Negative) Urine Nitrite (Negative) Urine Bilirubin (Negative) Urine Urobilinogen (<2.0) mg/dL Ur Leukocyte Esterase (Negative) 08/29/23 08/29/23 08/30/23 Range/Units 20:18 20:18 03:11 WBC 7.6 (3.8-10.6) k/uL RBC 5.05 (4.30-5.90) m/uL Hgb 15.3 (13.0-17.5) gm/dL Hct 46.0 (39.0-53.0) % MCV 91.1 (80.0-100.0) fL MCH 30.3 (25.0-35.0) pg MCHC 33.2 (31.0-37.0) g/dL RDW 13.1 (11.5-15.5) % Plt Count 241 (150-450) k/uL MPV 7.5 Neutrophils % 56 % Lymphocytes % 35 % Monocytes % 6 % Eosinophils % 2 % Basophils % 1 % Neutrophils # 4.2 (1.3-7.7) k/uL Lymphocytes # 2.7 (1.0-4.8) k/uL Monocytes # 0.5 (0-1.0) k/uL Eosinophils # 0.1 (0-0.7) k/uL Basophils # 0.0 (0-0.2) k/uL PT (10.0-12.5) sec INR (<1.2) APTT 31.1 H (22.0-30.0) sec Sodium 138 (137-145) mmol/L Potassium 3.7 (3.5-5.1) mmol/L Chloride 111 H (98-107) mmol/L Carbon Dioxide 21 L (22-30) mmol/L Anion Gap 6 mmol/L BUN 16 (9-20) mg/dL Creatinine 0.80 (0.66-1.25) mg/dL Est GFR (CKD-EPI)AfAm >90 (>60 ml/min/1.73 sqM) Est GFR (CKD-EPI)NonAf >90 (>60 ml/min/1.73 sqM) Glucose 101 H (74-99) mg/dL Plasma Lactic Acid Tobin (0.7-2.0) mmol/L Calcium 9.0 (8.4-10.2) mg/dL Magnesium 2.2 (1.6-2.3) mg/dL Total Bilirubin (0.2-1.3) mg/dL AST (17-59) U/L ALT (4-49) U/L Alkaline Phosphatase (38-126) U/L Troponin I (0.000-0.034) ng/mL NT-Pro-B Natriuret Pep pg/mL Total Protein (6.3-8.2) g/dL Albumin (3.5-5.0) g/dL TSH (0.465-4.680) mIU/L Urine Color Urine Appearance (Clear) Urine pH (5.0-8.0) Ur Specific [place] (1.001-1.035) Urine Protein (Negative) Urine Glucose (UA) (Negative) Urine Ketones (Negative) Urine Blood (Negative) Urine Nitrite (Negative) Urine Bilirubin (Negative) Urine Urobilinogen (<2.0) mg/dL Ur Leukocyte Esterase (Negative) 08/30/23 08/30/23 08/31/23 Range/Units 03:11 03:11 06:35 WBC (3.8-10.6) k/uL RBC (4.30-5.90) m/uL Hgb (13.0-17.5) gm/dL Hct (39.0-53.0) % MCV (80.0-100.0) fL MCH (25.0-35.0) pg MCHC (31.0-37.0) g/dL RDW (11.5-15.5) % Plt Count (150-450) k/uL MPV Neutrophils % % Lymphocytes % % Monocytes % % Eosinophils % % Basophils % % Neutrophils # (1.3-7.7) k/uL Lymphocytes # (1.0-4.8) k/uL Monocytes # (0-1.0) k/uL Eosinophils # (0-0.7) k/uL Basophils # (0-0.2) k/uL PT 10.8 (10.0-12.5) sec INR 1.0 (<1.2) APTT 55.0 H 34.5 H (22.0-30.0) sec Sodium (137-145) mmol/L Potassium (3.5-5.1) mmol/L Chloride (98-107) mmol/L Carbon Dioxide (22-30) mmol/L Anion Gap mmol/L BUN (9-20) mg/dL Creatinine (0.66-1.25) mg/dL Est GFR (CKD-EPI)AfAm (>60 ml/min/1.73 sqM) Est GFR (CKD-EPI)NonAf (>60 ml/min/1.73 sqM) Glucose (74-99) mg/dL Plasma Lactic Acid Tobin (0.7-2.0) mmol/L Calcium (8.4-10.2) mg/dL Magnesium (1.6-2.3) mg/dL Total Bilirubin (0.2-1.3) mg/dL AST (17-59) U/L ALT (4-49) U/L Alkaline Phosphatase (38-126) U/L Troponin I (0.000-0.034) ng/mL NT-Pro-B Natriuret Pep pg/mL Total Protein (6.3-8.2) g/dL Albumin (3.5-5.0) g/dL TSH (0.465-4.680) mIU/L Urine Color Urine Appearance (Clear) Urine pH (5.0-8.0) Ur Specific [place] (1.001-1.035) Urine Protein (Negative) Urine Glucose (UA) (Negative) Urine Ketones (Negative) Urine Blood (Negative) Urine Nitrite (Negative) Urine Bilirubin (Negative) Urine Urobilinogen (<2.0) mg/dL Ur Leukocyte Esterase (Negative) Disposition Clinical Impression: Near syncope, V-tach, A-fib Disposition: ADMITTED IP TO THIS [facility] Condition: Serious Is patient prescribed a controlled substance at d/c from ED?: No Time of Disposition: 14:23 Decision to Admit Reason: Admit from EC
[2023-08-28 13:17] LABS: Basophils % (A) 0 %; Eosinophils # (A) 0.1 k/uL (0-0.7); Eosinophils % (A) 2 %; HCT 42.8 % (39.0-53.0); Lymphocytes # (A) 1.8 k/uL (1.0-4.8); Lymphocytes % (A) 22 %; MCH 30.5 pg (25.0-35.0); MCHC 32.8 g/dL (31.0-37.0); Mean Platelet Volume 7.1; Monocytes # (A) 0.4 k/uL (0-1.0); Monocytes % (A) 5 %; Neutrophils # (A) 5.8 k/uL (1.3-7.7); Neutrophils % (A) 70 %; Platelet Count 234 k/uL (150-450); RDW 12.8 % (11.5-15.5); WBC 8.4 k/uL (3.8-10.6)
[2023-08-28 13:22] LABS: Appearance,Urine Clear (Clear); Bilirubin,Urine Negative (Negative); Blood,Urine Negative (Negative); Color,Urine Colorless; Glucose,Urine (UA) Negative (Negative); Ketones,Urine Negative (Negative); Leukocyte Esterase,Urine Negative (Negative); Nitrite,Urine Negative (Negative); Protein,Urine Negative (Negative); Specific Gravity,Urine 1.007 (1.001-1.035); Urobilinogen,Urine <2.0 mg/dL (<2.0)
[2023-08-28 13:26] LABS: Partial Thromboplastin Time 27.4 sec (22.0-30.0); Prothrombin Time 11.3 sec (10.0-12.5)
--- NOTE | 2023-08-28 13:29 | XR ---
EXAMINATION TYPE: XR chest 2V DATE OF EXAM: 08/28/2023 COMPARISON: None INDICATION: TECHNIQUE: Frontal and lateral views of the chest are obtained. FINDINGS: The heart size is normal. The pulmonary vasculature is normal. The lungs are clear. There is focal eventration of the right diaphragm. Electronic device overlies t he left chest. IMPRESSION: 1. No acute pulmonary process.
[2023-08-28 13:32] LABS: ALT 18 U/L (4-49); AST 21 U/L (17-59); African American GFR (CKD) >90 (>60 ml/min/1.73 sqM); Albumin 3.6 g/dL (3.5-5.0); Alkaline Phosphatase 68 U/L (38-126); Anion Gap 6 mmol/L; Blood Urea Nitrogen 16 mg/dL (9-20); Calcium 8.7 mg/dL (8.4-10.2); Carbon Dioxide 20 mmol/L (22-30); Chloride 113 mmol/L (98-107); Glucose 95 mg/dL (74-99); Non-African American GFR(CKD) >90 (>60 ml/min/1.73 sqM); Potassium 4.1 mmol/L (3.5-5.1); Sodium 139 mmol/L (137-145); Total Bilirubin 0.5 mg/dL (0.2-1.3); Total Protein 6.4 g/dL (6.3-8.2)
[2023-08-28 13:39] LABS: NT-Pro-B-Type Natriuretic Pept 2220 pg/mL
[2023-08-28] MEDS ORDERED: NALOXONE 0.4 MG/ML 1 ML VIAL IV PRN (14:27)
[2023-08-28] MEDS: METOPROLOL TARTRATE 25 MG TAB PO SCH (15:06)
--- NOTE | 2023-08-28 17:35 | P.HPIM ---
History of Present Illness H&P Date: 08/28/23 Chief Complaint: Dizziness 53-year-old male with past medical history of A-fib, hypertension, hyperlipidemia who presents emergency department reporting near syncope. He reports that he had a significant episode on Wednesday. He saw his nerve specialist on who placed him on a heart monitor. He has intermittent A-fib. He has had previous cardiac ablations and cardioversions. He takes Multaq 400 mg twice daily and Eliquis. States has been compliant with his medications. Today the patient had another significant episode of dizziness and near syncope and therefore decided to come into the emergency department for evaluation. Denies any chest pain. No recent medication changes. Blood work completed in ED reveals a WBC of 8.4, hemoglobin of 14 and platelet count of 234, sodium 139, potassium 4.1, BUNs/creatinine of 16/0.85 and magnesium of 2.0 EKG demonstrates sinus rhythm with rate of 90. CO interval 191. QRS 94. QTc of 405. No acute ST segment elevations or depressions Review of Systems REVIEW OF SYSTEMS: CONSTITUTIONAL: No fever, no malaise, no fatigue. HEENT: No recent visual problems or hearing problems. Denied any sore throat. CARDIOVASCULAR: No chest pain, orthopnea, PND, no palpitations, no syncope. PULMONARY: No shortness of breath, no cough, no hemoptysis. GASTROINTESTINAL: No diarrhea, no nausea, no vomiting, no abdominal pain. NEUROLOGICAL: No headaches, no weakness, no numbness. HEMATOLOGICAL: Denies any bleeding or petechiae. GENITOURINARY: Denies any burning micturition, frequency, or urgency. MUSCULOSKELETAL/RHEUMATOLOGICAL: Denies any joint pain, swelling, or any muscle pain. ENDOCRINE: Denies any polyuria or polydipsia. The rest of the 14-point review of systems is negative. Past Medical History Past Medical History: Atrial Fibrillation, Hyperlipidemia, Hypertension Additional Past Medical History / Comment(s): PANCREATITIS 01/01/14, see Dr Hughes H & P History of Any Multi-Drug Resistant Organisms: None Reported Past Surgical History: Cardiac Ablation, Cholecystectomy Additional Past Surgical History / Comment(s): 01/01/14, cardioversion Past Anesthesia/Blood Transfusion Reactions: Previous Problems w/ Anesthesia, Motion Sickness, Postoperative Nausea & Vomiting (PONV) Additional Past Anesthesia/Blood Transfusion Reaction / Comment(s): MORPHINE CAUSES AGITATION, RESTLESSNESS, INSOMNIA Past Psychological History: No Psychological Hx Reported Smoking Status: Never smoker Past Alcohol Use History: None Reported Past Drug Use History: None Reported - Past Family History Mother Family Medical History: Congestive Heart Failure (CHF), Diabetes Mellitus Medications and Allergies Home Medications Medication Instructions Recorded Confirmed Type Apixaban [Eliquis] 5 mg PO BID 05/15/19 08/28/23 History Dronedarone [Multaq] 400 mg PO BID-W/MEALS 08/28/23 08/28/23 History Sildenafil Citrate 50 mg PO DAILY PRN 08/28/23 08/28/23 History Spironolactone [Aldactone] 25 mg PO DAILY 08/28/23 08/28/23 History Allergies Allergy/AdvReac Type Severity Reaction Status Date / Time No Known Allergies Allergy Verified 08/28/23 15:16 Physical Exam Vitals: Vital Signs Temp Pulse Resp BP Pulse Ox 08/28/23 13:09 97 18 117/84 96 08/28/23 12:43 98 F 90 20 117/84 98 Intake and Output 08/28/23 08/28/23 08/28/23 06:59 14:59 22:59 Other: Weight 136.078 kg - Constitutional General appearance: Present: average body habitus, cooperative, no acute distress - EENT Eyes: Present: anicteric sclerae, EOMI, PERRLA, normal appearance ENT: Present: hearing grossly normal, normal oropharynx Ears: bilateral: normal - Neck Neck: Present: normal ROM. Absent: lymphadenopathy, rigidity, thyromegaly Carotids: negative: bruit present Thyroid: bilateral: normal size, negative: enlarged, nodule - Respiratory Respiratory: bilateral: CTA, negative: rales, rhonchi, wheezing - Cardiovascular Rhythm: regular Heart sounds: normal: S1, S2 Abnormal Heart Sounds: Absent: systolic murmur, diastolic murmur - Gastrointestinal General gastrointestinal: Present: normal bowel sounds, soft. Absent: distended, organomegaly, tenderness - Genitourinary Genitourinary Comment(s): deferred - Integumentary Integumentary: Present: normal turgor. Absent: jaundiced, rash, ulcer - Neurologic Neurologic: Present: CNII-XII intact. Absent: focal deficits - Musculoskeletal Musculoskeletal: Present: gait normal, strength equal bilaterally - Psychiatric Psychiatric: Present: A&O x's 3, appropriate affect, intact judgment & insight Results CBC & Chem 7: 08/28/23 12:57 08/28/23 12:57 Labs: Abnormal Lab Results - Last 24 Hours (Table) 08/28/23 Range/Units 12:57 Chloride 113 H (98-107) mmol/L Carbon Dioxide 20 L (22-30) mmol/L Assessment and Plan Assessment: 1. Near syncope --Likely related to cardiac arrhythmia; patient has been placed on telemetry -Monitor EKG and trend troponin -2D echo 2. Cardiac arrhythmias/V. tach Continue Multaq 400 mg twice daily and Eliquis; patient was discussed with cardiology and is recommended to place on metoprolol 25 mg twice daily -Consult cardiology for further recommendations 3. Atrial fibrillation; Multaq 400 mg twice daily, Eliquis 5 mg twice daily 4. Hypertension; Aldactone 25 mg daily 5. Hyperlipidemia; currently not on any statin therapy at this time DVT prophylaxis; SCDs/Eliquis CODE STATUS; full code
[2023-08-28] MEDS: DRONEDARONE 400 MG TAB PO SCH ×2 (18:23→21:02)
[2023-08-28] MEDS: APIXABAN 5 MG TAB PO SCH (21:01)
[2023-08-28] MEDS: AMIODARONE 360 MG in DEXTROSE 5% IN WATER 200 ML IV ONE (22:32)
[2023-08-28] MEDS: DEXTROSE 5% IN WATER 100 ML with AMIODARONE 150 MG IV ONE (22:32)
[2023-08-28] MEDS: METOPROLOL TARTRATE 25 MG TAB PO STA (22:34)
[2023-08-29] MEDS: METOPROLOL TARTRATE 50 MG TAB PO SCH (07:54)
[2023-08-29] MEDS ORDERED: SPIRONOLACTONE 25 MG TAB PO SCH (09:00)
[2023-08-29 09:39] LABS: African American GFR (CKD) >90 (>60 ml/min/1.73 sqM); Anion Gap 7 mmol/L; Blood Urea Nitrogen 14 mg/dL (9-20); Carbon Dioxide 20 mmol/L (22-30); Chloride 111 mmol/L (98-107); Glucose 96 mg/dL (74-99); Non-African American GFR(CKD) >90 (>60 ml/min/1.73 sqM); Potassium 4.2 mmol/L (3.5-5.1); Sodium 138 mmol/L (137-145)
[2023-08-29 09:50] LABS: Basophils # (A) 0.1 k/uL (0-0.2); Basophils % (A) 1 %; Eosinophils # (A) 0.1 k/uL (0-0.7); Eosinophils % (A) 2 %; HCT 45.4 % (39.0-53.0); HGB 14.9 gm/dL (13.0-17.5); Lymphocytes # (A) 1.5 k/uL (1.0-4.8); Lymphocytes % (A) 22 %; MCH 30.4 pg (25.0-35.0); MCHC 32.8 g/dL (31.0-37.0); MCV 92.8 fL (80.0-100.0); Mean Platelet Volume 7.4; Monocytes # (A) 0.3 k/uL (0-1.0); Monocytes % (A) 4 %; Neutrophils # (A) 4.9 k/uL (1.3-7.7); Neutrophils % (A) 70 %; Platelet Count 245 k/uL (150-450); RBC 4.89 m/uL (4.30-5.90); RDW 12.8 % (11.5-15.5); WBC 6.9 k/uL (3.8-10.6)
--- NOTE | 2023-08-29 15:00 | P.CRDCN ---
History of Present Illness Consult date: 08/29/23 Reason for Consult (text): Atrial fibrillation, ventricular tachycardia History of present illness: History of present illness: This is a 53-year-old male patient of Dr. Hughes with past medical history of persistent atrial fibrillation s/p AF ablation, atrial tachycardia on Multaq. We have been asked to evaluate the patient for atrial fibrillation and ventricular tachycardia. Patient presented to the hospital due to dizziness with significant episode on Wednesday. He was seen in the office on and was told he was in afib. He was placed on a heart monitor. Patient states he has never had VT.Patient is currently in a sinus rhythm in the 90s. Cardiology was called last evening and amiodarone drip was ordered but not given, Multaq was discontinued, 1 dose of oral Lopressor 25 mg given followed by Lopressor 50 mg twice daily. Patient has had additional runs of VT this morning 7 beats, 8 beats and [address] Grant has discussed case with Dr. Hughes. Patient denies smoking, alcohol abuse. He drinks coffee daily but no increase in intake. No FMH of CAD, sudden in immediate members. Dr. Grant discussed tr eatment options including possible need for ICD, need to rule out CAD with cardiac catheterization or stress test, treatment with another ablation, options of medication changes now. Patient is agreeable to move forward with cardiac catheterization which will take place either on Wednesday or Wednesday. EKG #1 sinus mechanism at 90 bpm, #2 atrial fibrillation at 139 bpm, #3 wide- complex tachycardia 141 bpm Chest x-ray: No acute process Laboratory studies: CBC within normal limits. INR 1. Sodium 139, potassium 4.1, CO2 20, BUN 16 creatinine 0.85. Troponins negative x 3. proBNP 2220. 24-hour Holter monitor completed in 2021 Home cardiac medications: Eliquis 5 mg twice daily, Aldactone 25 mg daily, Multaq 400 mg twice daily With sinus mechanism running between 55 and 126 bpm with average of 77 bpm. Longest R-R interval 1.3 seconds. No arrhythmias. No atrial fibrillation. Echocardiogram performed in the office on 10/31/2020 revealed EF of 55%. Mild mitral regurgitation. Mild tricuspid regurgitation. Normal pulmonary artery systolic pressure of 34 mmHg. Review Of Systems: At the time of my exam: CONSTITUTIONAL: Denies fever or chills. HEENT: Denies blurred vision, vision changes, or eye pain. Denies hemoptysis CARDIOVASCULAR: Denies chest pain. Denies orthopnea. Denies PND. Denies palpitations RESPIRATORY: Denies shortness of breath. GASTROINTESTINAL: Denies abdominal pain. Denies nausea or vomiting. HEMATOLOGIC: Denies bleeding disorders. GENITOURINARY: Denies any blood in urine. SKIN: Denies pruitis. Denies rash. Physical examination: Gen: This is a 53-year-old male in no acute distress. VS: reviewed, blood pressure 114/77, heart rate 92, pulse ox 97% on room air, afebrile. HEENT: Head is atraumatic, normocephalic. Pupils equal, round. Sclerae is anicteric. NECK: Supple. No JVD. LUNGS: Clear to auscultation. No wheezes or rhonchi. No intercostal retracti ons. HEART: Irregular rate and rhythm. No murmur. ABDOMEN: Soft No tenderness. EXTREMITIES: No pedal edema. No calf tenderness. NEUROLOGICAL: Patient is awake, alert and oriented x3. Assessment: Persistent atrial fibrillation with previous AF ablation, episode of RVR Nonsustained ventricular tachycardia Atrial tachycardia Plan: Discontinue Lopressor and start Toprol XL 75 mg bid Continue to hold Multaq, Aldactone, and Eliquis Start heparin drip Plan for cardiac catheterization either tomorrow or on Wednesday with Dr. Grant N.p.o. after midnight, medication changes. Obtain 2-D echocardiogram and Doppler study to assess cardiac structure and function Patient may benefit from outpatient sleep study Further recommendations to follow based upon clinical course Thank you kindly for this consultation. Nurse practitioner note has been reviewed, I agree with documented findings and plan of care. Patient was seen and examined. Past Medical History Past Medical History: Atrial Fibrillation, Hyperlipidemia, Hypertension Additional Past Medical History / Comment(s): PANCREATITIS 01/01/14, see Dr Hughes [facility] & P History of Any Multi-Drug Resistant Organisms: None Reported Past Surgical History: Cardiac Ablation, Cholecystectomy Additional Past Surgical History / Comment(s): 01/01/14, cardioversion Past Anesthesia/Blood Transfusion Reactions: Previous Problems w/ Anesthesia, Motion Sickness, Postoperative Nausea & Vomiting (PONV) Additional Past Anesthesia/Blood Transfusion Reaction / Comment(s): MORPHINE CAUSES AGITATION, RESTLESSNESS, INSOMNIA Past Psychological History: No Psychological Hx Reported Smoking Status: Never smoker Past Alcohol Use History: None Reported Past Drug Use History: None Reported - Past Family History Mother Family Medical History: Congestive Heart Failure (CHF), Diabetes Mellitus Medications and Allergies Home Medications Medication Instructions Recorded Confirmed Type Apixaban [Eliquis] 5 mg PO BID 05/15/19 08/28/23 History Dronedarone [Multaq] 400 mg PO BID-W/MEALS 08/28/23 08/28/23 History Sildenafil Citrate 50 mg PO DAILY PRN 08/28/23 08/28/23 History Spironolactone [Aldactone] 25 mg PO DAILY 08/28/23 08/28/23 History Allergies Allergy/AdvReac Type Severity Reaction Status Date / Time No Known Allergies Allergy Verified 08/28/23 15:16 Physical Exam Vitals: Vital Signs Temp Pulse Pulse Resp BP BP Pulse Ox 08/29/23 08:00 97.5 F L 92 18 114/77 97 08/29/23 03:28 98.5 F 89 18 99/65 94 L 08/28/23 23:00 97.6 F 89 20 114/84 97 08/28/23 22:35 89 19 107/78 97 08/28/23 21:00 89 19 123/86 95 08/28/23 19:18 90 19 117/91 97 08/28/23 18:00 90 13 116/83 96 08/28/23 17:00 87 18 116/79 97 08/28/23 16:00 136 H 18 127/87 96 08/28/23 15:00 89 16 117/84 98 08/28/23 13:09 97 18 117/84 96 08/28/23 12:43 98 F 90 20 117/84 98 Intake and Output 08/28/23 08/29/23 08/29/23 22:59 06:59 14:59 Intake Total 540 Output Total 800 375 Balance -800 165 Intake: Oral 540 Output: Urine 800 375 Other: Voiding Method Urinal # Voids 1 Weight 142.5 kg Results 08/29/23 08:34 08/29/23 08:34 Cardiac Enzymes 08/28/23 08/28/23 08/28/23 Range/Units 12:57 12:57 15:52 AST 21 (17-59) U/L Troponin I <0.012 <0.012 (0.000-0.034) ng/mL 08/28/23 Range/Units 19:10 AST (17-59) U/L Troponin I <0.012 (0.000-0.034) ng/mL Coagulation 08/28/23 Range/Units 12:57 PT 11.3 (10.0-12.5) sec APTT 27.4 (22.0-30.0) sec CBC 08/28/23 Range/Units 12:57 WBC 8.4 (3.8-10.6) k/uL RBC 4.60 (4.30-5.90) m/uL Hgb 14.0 (13.0-17.5) gm/dL Hct 42.8 (39.0-53.0) % Plt Count 234 (150-450) k/uL Comprehensive Metabolic Panel 08/28/23 Range/Units 12:57 Sodium 139 (137-145) mmol/L Potassium 4.1 (3.5-5.1) mmol/L Chloride 113 H (98-107) mmol/L Carbon Dioxide 20 L (22-30) mmol/L BUN 16 (9-20) mg/dL Creatinine 0.85 (0.66-1.25) mg/dL Glucose 95 (74-99) mg/dL Calcium 8.7 (8.4-10.2) mg/dL AST 21 (17-59) U/L ALT 18 (4-49) U/L Alkaline Phosphatase 68 (38-126) U/L Total Protein 6.4 (6.3-8.2) g/dL Albumin 3.6 (3.5-5.0) g/dL Current Medications Generic Name Dose Route Start Last Admin Trade Name Freq PRN Reason Stop Dose Admin Apixaban 5 mg 08/28/23 21:00 08/29/23 07:54 Apixaban 5 Mg Tab PO 5 mg BID JAYCOB Administration Protocol Metoprolol Tartrate 50 mg 08/29/23 09:00 08/29/23 07:54 Metoprolol Tartrate 50 Mg Tab PO 50 mg BID JAYCOB Administration Naloxone HCl 0.2 mg 08/28/23 14:27 Naloxone 0.4 Mg/Ml 1 Ml Vial IV Q2M PRN Opioid Reversal Intake and Output 0508/29/23 08/29/23 22:59 06:59 14:59 Intake Total 540 Output Total 800 375 Balance -800 165 Intake: Oral 540 Output: Urine 800 375 Other: Voiding Method Urinal # Voids 1 Weight 142.5 kg 08/28/23 12:57 08/28/23 12:57
[2023-08-29] MEDS: METOPROLOL SUCCINATE (ER) 25 MG TAB.ER.24H PO STA ×2 (15:21→21:35)
[2023-08-29] MEDS: ACETAMINOPHEN TAB 325 MG TAB PO PRN (15:21)
[2023-08-29] MEDS: HEPARIN SODIUM 1,000 UN/ML (10ML VL) IV ONE (15:21)
[2023-08-29] MEDS: HEPARIN SOD,PORK IN 0.45% NACL 25,000 UNIT in 0.45% NACL 1 250ML.BAG IV SCH (15:22)
[2023-08-29 15:35] LABS: Basophils # (A) 0.1 k/uL (0-0.2); Basophils % (A) 1 %; Eosinophils # (A) 0.2 k/uL (0-0.7); Eosinophils % (A) 2 %; HCT 45.4 % (39.0-53.0); HGB 15.1 gm/dL (13.0-17.5); Lymphocytes # (A) 2.1 k/uL (1.0-4.8); Lymphocytes % (A) 27 %; MCH 30.9 pg (25.0-35.0); MCHC 33.3 g/dL (31.0-37.0); MCV 92.8 fL (80.0-100.0); Mean Platelet Volume 7.2; Monocytes # (A) 0.4 k/uL (0-1.0); Monocytes % (A) 5 %; Neutrophils # (A) 4.9 k/uL (1.3-7.7); Neutrophils % (A) 64 %; Platelet Count 235 k/uL (150-450); RBC 4.89 m/uL (4.30-5.90); RDW 12.8 % (11.5-15.5); WBC 7.8 k/uL (3.8-10.6)
[2023-08-29 15:48] LABS: Partial Thromboplastin Time 26.1 sec (22.0-30.0); Prothrombin Time 10.8 sec (10.0-12.5)
[2023-08-29] MEDS: METOPROLOL SUCCINATE (ER) 25 MG TAB.ER.24H PO SCH (18:09)
[2023-08-29 20:51] LABS: African American GFR (CKD) >90 (>60 ml/min/1.73 sqM); Anion Gap 6 mmol/L; Blood Urea Nitrogen 16 mg/dL (9-20); Carbon Dioxide 21 mmol/L (22-30); Chloride 111 mmol/L (98-107); Glucose 101 mg/dL (74-99); Magnesium 2.2 mg/dL (1.6-2.3); Non-African American GFR(CKD) >90 (>60 ml/min/1.73 sqM); Potassium 3.7 mmol/L (3.5-5.1); Sodium 138 mmol/L (137-145)
[2023-08-29] MEDS ORDERED: Potassium Replacement Protocol 1 EACH MISC MISCELLANE PRN (21:28)
[2023-08-29] MEDS: POTASSIUM CHLORIDE ER 20 MEQ TAB.ER PO SCH (21:35)
[2023-08-30 03:28] LABS: Basophils % (A) 1 %; Eosinophils # (A) 0.1 k/uL (0-0.7); Eosinophils % (A) 2 %; HGB 15.3 gm/dL (13.0-17.5); Lymphocytes # (A) 2.7 k/uL (1.0-4.8); Lymphocytes % (A) 35 %; MCH 30.3 pg (25.0-35.0); MCHC 33.2 g/dL (31.0-37.0); MCV 91.1 fL (80.0-100.0); Mean Platelet Volume 7.5; Monocytes # (A) 0.5 k/uL (0-1.0); Monocytes % (A) 6 %; Neutrophils # (A) 4.2 k/uL (1.3-7.7); Neutrophils % (A) 56 %; Platelet Count 241 k/uL (150-450); RBC 5.05 m/uL (4.30-5.90); RDW 13.1 % (11.5-15.5); WBC 7.6 k/uL (3.8-10.6)
[2023-08-30 03:35] LABS: Prothrombin Time 10.8 sec (10.0-12.5)
--- NOTE | 2023-08-30 10:50 | P.PN ---
Subjective Progress Note Date: 08/30/23 Reason for Consult (text): Atrial fibrillation, ventricular tachycardia History of present illness: This is a 53-year-old male patient of Dr. Hughes with past medical history of persistent atrial fibrillation s/p AF ablation, atrial tachycardia on Multaq. We have been asked to evaluate the patient for atrial fibrillation and ventricular tachycardia. Patient presented to the hospital due to dizziness with significant episode on Wednesday. He was seen in the office on and was told he was in afib. He was placed on a heart monitor. Patient states he has never had VT.Patient is currently in a sinus rhythm in the 90s. Cardiology was called last evening and amiodarone drip was ordered but not given, Multaq was discontinued, 1 dose of oral Lopressor 25 mg given followed by Lopressor 50 mg twice daily. Patient has had additional runs of VT this morning 7 beats, 8 beats and [address] Grant has discussed case with Dr. Hughes. Patient denies smoking, alcohol abuse. He drinks coffee daily but no increase in intake. No FMH of CAD, sudden in immediate members. Dr. Grant discussed treatment options including possible need for ICD, need to rule out CAD with cardiac catheterization or stress test, treatment with another ablation, options of medication changes now. Patient is agreeable to move forward with cardiac catheterization which will take place either on Wednesday or Wednesday. EKG #1 sinus mechanism at 90 bpm, #2 atrial fibrillation at 139 bpm, #3 wide- complex tachycardia 141 bpm Chest x-ray: No acute process Laboratory studies: CBC within normal limits. INR 1. Sodium 139, potassium 4.1, CO2 20, BUN 16 creatinine 0.85. Troponins negative x 3. proBNP 2220. 24-hour Holter monitor completed in 2021 Home cardiac medications: Eliquis 5 mg twice daily, Aldactone 25 mg daily, Multaq 400 mg twice daily With sinus mechanism running between 55 and 126 bpm with average of 77 bpm. Longest R-R interval 1.3 seconds. No arrhythmias. No atrial fibrillation. Echocardiogram performed in the office on 10/31/2020 revealed EF of 55%. Mild mitral regurgitation. Mild tricuspid regurgitation. Normal pulmonary artery systolic pressure of 34 mmHg. 08/29 Last evening, patient had multiple episodes of Nonsustained VT while often and atrial fibrillation with RVR. Patient is now in a sinus rhythm. An additional dose of tropol 25 ordered and increased to [address] Grant discussed case with Dr. Hughes this am and plan is for [facility] tomorrow and decrease toprol and start sotolol. If cardiac catheterization is unremarkable, patient may require LifeVest before discharge. All of this has been discussed by Dr. Grant with the patient and his at the bedside. All questions have been answered. Physical examination: Gen: This is a 53-year-old male in no acute distress. VS: reviewed HEENT: Head is atraumatic, normocephalic. Pupils equal, round. Sclerae is anicteric. NECK: Supple. No JVD. LUNGS: Clear to auscultation. No wheezes or rhonchi. No intercostal retractions. HEART: Irregular rate and rhythm. No murmur. ABDOMEN: Soft No tenderness. EXTREMITIES: No pedal edema. No calf tenderness. NEUROLOGICAL: Patient is awake, alert and oriented x3. Assessment: Persistent atrial fibrillation with previous AF ablation, episode of RVR Nonsustained ventricular tachycardia Atrial tachycardia Plan: Decrease Toprol-XL to 50 mg bid Start patient on sotalol 80 mg twice daily Patient instructed to not start any new medications without clearance from Dr. Hughes Continue to hold Multaq, Aldactone, and Eliquis Continue heparin drip Plan for cardiac catheterization on Wednesday with Dr. Grant N.p.o. after midnight Obtain 2-D echocardiogram and Doppler study to assess cardiac structure and function Patient may benefit from outpatient sleep study Further recommendations to follow based upon clinical course Thank you kindly for this consultation. Nurse practitioner note has been reviewed, I agree with documented findings and plan of care. Patient was seen and examined. Objective - Vital Signs Vital signs: Vital Signs Temp 98.0 F 08/30/23 08:30 Pulse 66 08/30/23 08:30 Resp 16 08/30/23 08:30 BP 109/74 08/30/23 08:30 Pulse Ox 96 08/30/23 08:30 FiO2 Intake & Output 08/29/23 08/30/23 08/30/23 18:59 06:59 18:59 Intake Total 1674 57 164.511 Output Total 375 Balance 1299 57 164.511 Weight 138.3 kg Intake: Intake, IV Titration 57 164.511 Amount Heparin Sod,Pork in 0.45% 57 164.511 NaCl 25,000 unit In 0.45 % NaCl 1 250ml.bag @ 7. 0175 UNITS/KG/HR 10 mls/ hr IV .Q24H JAYCOB Rx#: [id number] Oral 1674 Output: Urine 375 Other: Voiding Method Toilet Toilet Urinal Urinal # Voids 2 1 - Labs CBC & Chem 7: 08/30/23 03:11 08/29/23 20:18 Labs: Abnormal Lab Results - Last 24 Hours (Table) 08/29/23 08/29/23 08/30/23 Range/Units 20:18 20:18 03:11 APTT 31.1 H 55.0 H (22.0-30.0) sec Chloride 111 H (98-107) mmol/L Carbon Dioxide 21 L (22-30) mmol/L Glucose 101 H (74-99) mg/dL
[2023-08-30] MEDS ORDERED: ALPRAZolam 0.5 MG TAB PO PRN (10:52)
[2023-08-30] MEDS ORDERED: ALPRAZolam 0.25 MG TAB PO PRN (10:52)
[2023-08-30] MEDS ORDERED: NITROGLYCERIN SL TABS 0.4 MG TAB SUBLINGUAL PRN (10:52)
[2023-08-30] MEDS: SOTALOL 80 MG TAB PO SCH (12:20)
--- NOTE | 2023-08-30 14:00 | P.PN ---
Subjective Progress Note Date: 08/30/23 53-year-old male with past medical history of A-fib, hypertension, hyperlipidemia who presents emergency department reporting near syncope. He reports that he had a significant episode on Wednesday. 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 He has intermittent A-fib. He has had previous cardiac ablations and cardioversions. He takes Multaq 400 mg twice daily and Eliquis. States has been compliant with his medications. Today the patient had another significant episode of dizziness and near syncope and therefore decided to come into the emergency department for evaluation. Denies any chest pain. No recent medication changes. Blood work completed in ED reveals a WBC of 8.4, hemoglobin of 14 and platelet count of 234, sodium 139, potassium 4.1, BUNs/creatinine of 16/0.85 and magnesium of 2.0 EKG demonstrates sinus rhythm with rate of 90. [place] interval 191. QRS 94. QTc of 405. No acute ST segment elevations or depressions 08/29. Patient seen and examined. Overnight patient had multiple episodes of nonsustained V. tach alternated with AF with RVR. Cardiology planning cardiac cath in the morning. Patient started on sotalol. Denies any chest pain. Did had an episode of lightheadedness this morning REVIEW OF SYSTEMS: CONSTITUTIONAL: No fever, no malaise,. CARDIOVASCULAR: No chest pain, no palpitations, no syncope. PULMONARY: No shortness of breath, no cough, GASTROINTESTINAL: No diarrhea, no nausea, no vomiting, no abdominal pain. NEUROLOGICAL: No headaches, no weakness, PHYSICAL EXAMINATION: GENERAL: The patient is alert and oriented x3, not in any acute distress. Well developed, well nourished. HEENT: Pupils are round and equally reacting to light. EOMI. No scleral icterus. No conjunctival pallor. Normocephalic, atraumatic. No pharyngeal erythema. No thyromegaly. CARDIOVASCULAR: S1 and S2 present. No murmurs, rubs, or gallops. PULMONARY: Chest is clear to auscultation, no wheezing or crackles. ABDOMEN: Soft, nontender, nondistended, normoactive bowel sounds. No palpable organomegaly. MUSCULOSKELETAL: No joint swelling or deformity. EXTREMITIES: No cyanosis, clubbing, or pedal edema. NEUROLOGICAL: Gross neurological examination did not reveal any focal deficits. SKIN: No rashes. Assessment and plan Near syncope Persistent atrial fibrillation with previous AF ablation, episode of RVR Nonsustained ventricular tachycardia Atrial tachycardia Hypertension hyperlipidemia Monitor vital signs Monitor CBC Monitor CMP Continue telemetry monitoring Continue to hold Multaq, Aldactone, and Eliquis Continue heparin drip Started on sotalol Cardiology following Labs and medication were reviewed.. Continue same treatment. Continue with symptomatic treatment. Resume home medication. Monitor labs and vitals. DVT and GI prophylaxis. Further recommendations as per clinical course of the patient Dictation was produced using [employer] dictation software. please excuse any grammatical, word or spelling errors. Objective - Vital Signs Vital signs: Vital Signs Temp 98.0 F 08/30/23 08:30 Pulse 66 08/30/23 08:30 Resp 16 08/30/23 08:30 BP 109/74 08/30/23 08:30 Pulse Ox 96 08/30/23 08:30 FiO2 Intake & Output 08/29/23 08/30/23 08/30/23 18:59 06:59 18:59 Intake Total 1674 57 164.511 Output Total 375 Balance 1299 57 164.511 Weight 138.3 kg Intake: Intake, IV Titration 57 164.511 Amount Heparin Sod,Pork in 0.45% 57 164.511 NaCl 25,000 unit In 0.45 % NaCl 1 250ml.bag @ 7. 0175 UNITS/KG/HR 10 mls/ hr IV .Q24H JAYCOB Rx#: [id number] Oral 1674 Output: Urine 375 Other: Voiding Method Toilet Toilet Urinal Urinal # Voids 2 1 - Labs CBC & Chem 7: 08/30/23 03:11 08/29/23 20:18 Labs: Abnormal Lab Results - Last 24 Hours (Table) 08/29/23 08/29/23 08/30/23 Range/Units 20:18 20:18 03:11 APTT 31.1 H 55.0 H (22.0-30.0) sec Chloride 111 H (98-107) mmol/L Carbon Dioxide 21 L (22-30) mmol/L Glucose 101 H (74-99) mg/dL
[2023-08-30] MEDS ORDERED: METOPROLOL SUCCINATE (ER) 100 MG TAB.ER.24H PO SCH (21:00)
[2023-08-30] MEDS: SODIUM CHLORIDE 0.9% 1,000 ML IV SCH (21:08)
[2023-08-30] MEDS: METOPROLOL SUCCINATE (ER) 50 MG TAB.ER.24H PO SCH (21:09)
[2023-08-31] MEDS: ATORVASTATIN 80 MG TAB PO ONE (05:44)
[2023-08-31] MEDS: ASPIRIN 325 MG TAB PO ONE (05:45)
[2023-08-31] MEDS ORDERED: HEPARIN SODIUM,PORCINE 10,000 UNIT in SODIUM CHLORIDE 0.9% 1,000 ML IRRIGATION PRN (07:00)
[2023-08-31] MEDS ORDERED: HEPARIN SODIUM,PORCINE (1 ML) 2,500 UNIT in SODIUM CHLORIDE 0.9% 250 ML IRRIGATION PRN (07:00)
[2023-08-31] MEDS: HEPARIN SODIUM 1,000 UN/ML (10ML VL) IV PRN (09:07)
[2023-08-31] MEDS: SPIRONOLACTONE 25 MG TAB PO SCH (10:25)
--- NOTE | 2023-08-31 10:40 | P.PN ---
Subjective Progress Note Date: 08/31/23 Antiarrhythmics adjusted yesterday including the addition of sotalol. Telemetry reporting no further runs of nonsustained V. tach. Anticoagulated on heparin drip. Eliquis, Multaq and Aldactone on hold. Paroxysmal atrial tachycardia. Echo pending .n.p.o., scheduled for cardiac catheterization today. Denies chest pain, palpitations or shortness of breath. Maintaining O2 sats in the high 90s on room air. Denies lightheadedness, dizziness or focal deficits. Objective - Vital Signs Vital signs: Vital Signs Temp 97.4 F L 08/31/23 07:58 Pulse 89 08/31/23 07:58 Resp 16 08/31/23 07:58 BP 115/83 08/31/23 07:58 Pulse Ox 99 08/31/23 07:58 FiO2 Intake & Output 08/30/23 08/31/23 08/31/23 18:59 06:59 18:59 Intake Total 802.511 456.1 132.18 Balance 802.511 456.1 132.18 Weight 139.1 kg Intake: Intake, IV Titration 164.511 216.1 132.18 Amount Heparin Sod,Pork in 0.45% 164.511 216.1 132.18 NaCl 25,000 unit In 0.45 % NaCl 1 250ml.bag @ 7. 0175 UNITS/KG/HR 10 mls/ hr IV .Q24H REPLACED BY [facility] Rx#: [id number] Oral 638 240 Other: Voiding Method Toilet Toilet Urinal # Voids 1 1 - Exam PHYSICAL EXAM: VITAL SIGNS: [As above] GENERAL: Alert and oriented x 3, sitting up in bed, no acute distress HEENT: Atraumatic, normocephalic,conjunctivae normal. eyes normal. NECK: Supple, no JVD. CARDIOVASCULAR: S1, S2 regular. No murmur RESPIRATION: Unlabored, equal air entry ,CTA. ABDOMEN: Soft, nontender , nondistended, no guarding, no rigidity. Positive bowel sounds. LEGS: No edema. no swelling. No calf tenderness. NERVOUS SYSTEM: Cranial N 2-12 grossly normal.No focal deficits. Strength and sensation grossly intact. Skin: Warm and dry, no rashes noted - Labs CBC & Chem 7: 09/01/23 09:53 08/29/23 20:18 Labs: Abnormal Lab Results - Last 24 Hours (Table) 08/31/23 Range/Units 06:35 APTT 34.5 H (22.0-30.0) sec Assessment and Plan Assessment: Chronic atrial fibrillation, RVR ,prior ablation, currently sinus rhythm Nonsustained ventricular tachycardia Paroxysmal atrial atrial fibrillation -atrial tachycardia Morbid obesity, BMI 42 Plan: Continue on current medication regimen ,monitoring and symptomatic treatment. Antiarrhythmics/anticoagulation as per cardiology. N.p.o. Echo/cardiac catheterization pending. The impression and plan of care has been dictated as directed. : I performed a history and examination of this patient, discussed the same with the dictator. I agree with the dictator's note ,documented as a scribe. Any ad ditional findings or plans will be noted.
--- NOTE | 2023-08-31 17:26 | P.PN ---
Subjective Patient is resting comfortably in bed. He was admitted with palpitations and near syncope. He has had a history of A-fib ablation and subsequently has been on Multaq When he first arrived his twelve-lead EKG showed sinus rhythm normal MD narrow QRS early repolarization abnormality in the inferior lateral leads Subsequent EKG showed a paroxysm of atrial tachycardia with one-to-one conduction The next EKG showed sinus mechanism with a long run of ventricular tachycardia The ventricular tachycardia has a left bundle branch block morphology with negatively oriented QRSs V1-V6 as well as negatively oriented QRSs in leads II and III and aVF with notching Subsequent EKG shows atrial fibrillation but this is after Multaq was disconti nued He continues to experience runs of nonsustained VT very frequently and the dose of beta-blockers was increased to 100 mg twice daily, metoprolol XL. Thereafter sotalol was added and metoprolol dose was reduced Currently he is on sotalol 80 mg twice daily and so far today he has not had any further ventricular tachycardia but he remains in an atrial tachycardia with 2-1 conduction He denies any dizziness lightheadedness or any shortness of breath at this time On examination, blood pressure 115/83 mmHg pulse rate 89 afebrile Breath sounds are reduced bilaterally no rhonchi no crackles Heart sounds are regular no murmurs or gallop or rub Electrolytes normal sodium 138, potassium 3.7 BUN 16 and creatinine 0.8 Magnesium 2.2 Normal troponins Mildly elevated NT proBNP Normal liver function Normal calcium Impression History of persistent atrial fibrillation status post PVI and linear ablation of the left atrial roof several years back. Epicardial atrial tachycardia and therefore treated with Multaq which she tolerated very well for several years Recent onset of presyncope with palpitations Documented wide-complex tachycardia consistent with VT with QRS fractionation seen in the inferior leads and notching on the downslope of lead V1 This appears to be originating from the right ventricle towards the apex/inferior wall After stopping Multaq he has had paroxysms of A-fib/atrial tachycardia Currently he is on sotalol 80 mg twice daily along with metoprolol succinate 50 mg twice daily Plan Add spironolactone 12.5 mg p.o. daily And magnesium oxide 400 mg daily Continue sotalol 80 mg twice daily Proceed with coronary angiography. Discussed with Dr. Grant thereafter if th ere is no evidence for any coronary artery disease further advanced imaging will be recommended since QRS fractionation is noted during VT and it appears to originate from the inferior apical wall of the right ventricle Considerations include a LifeVest, EP study and ablation of the VT, EP study and ablation of the atrial tachycardia and the roof with cryoablation. However the results of the coronary angiogram will determine the future course of action For now continue current medications. Anticoagulation is on hold he is on IV heparin Objective - Vital Signs Vital signs: Vital Signs Temp 97.4 F L 08/31/23 15:42 Pulse 85 08/31/23 15:42 Resp 16 08/31/23 15:42 BP 120/79 08/31/23 15:42 Pulse Ox 99 08/31/23 15:42 FiO2 Intake & Output 08/30/23 08/31/23 08/31/23 18:59 06:59 18:59 Intake Total 802.511 456.1 250.00 Balance 802.511 456.1 250.00 Weight 139.1 kg Intake: Intake, IV Titration 164.511 216.1 250.00 Amount Heparin Sod,Pork in 0.45% 164.511 216.1 250.00 NaCl 25,000 unit In 0.45 % NaCl 1 250ml.bag @ 7. 0175 UNITS/KG/HR 10 mls/ hr IV .Q24H [facility] Rx#: [id number] Oral 638 240 Other: Voiding Method Toilet Toilet Urinal # Voids 1 1 - Labs CBC & Chem 7: 08/30/23 03:11 08/29/23 20:18 Labs: Abnormal Lab Results - Last 24 Hours (Table) 08/31/23 08/31/23 Range/Units 06:35 15:32 APTT 34.5 H 68.4 H (22.0-30.0) sec
[2023-08-31] MEDS: MAGNESIUM OXIDE 400 MG TAB PO SCH (18:28)
--- NOTE | 2023-08-31 18:39 | CA ---
Transthoracic Echo Report Name: Jer Dimas Age: 53 Gender: M : 1970 Exam Date: 08/31/2023 11:13 Exam Location: [facility] Ht (in): 72 Wt (lb): 306 Ordering Physician: Rober Hughes MD ([id number]) Attending/Referring Phys: Computer Science Professor Saumya Schafer RDCS Procedure CPT: Indications: v-tach Cardiac Hx: Technical Quality: Technically difficult study Contrast 1: Total Dose (mL): Contrast 2: Total Dose (mL): MEASUREMENTS (Male / Female) Normal Values 2D ECHO LV Diastolic Diameter PLAX 4.5 cm 4.2 - 5.9 / 3.9 - 5.3 cm LV Systolic Diameter PLAX 3.2 cm IVS Diastolic Thickness 1.7 cm 0.6 - 1.0 / 0.6 - 0.9 cm LVPW Diastolic Thickness 1.5 cm 0.6 - 1.0 / 0.6 - 0.9 cm LV Relative Wall Thickness 0.7 RV Internal Dim ED PLAX 4.5 cm LV Diastolic Volume MOD BP 135.3 cm??? 67 - 155 / 56 - 104 cm??? LV Systolic Volume MOD BP 52.6 cm??? 22 - 58 / 19 - 49 cm??? LV Ejection Fraction MOD BP 61.1 % >= 55 % LV Cardiac Index MOD BP 2708.0 cm???/min???m??? LV Diastolic Volume MOD 4C 116.3 cm??? LV Systolic Volume MOD 4C 44.1 cm??? LV Ejection Fraction MOD 4C 62.1 % LV Cardiac Index MOD 4C 2366.8 cm???/min???m??? LV Diastolic Length 4C 7.8 cm LV Systolic Length 4C 6.8 cm LV Diastolic Volume MOD 2C 135.0 cm??? LV Systolic Volume MOD 2C 57.6 cm??? LV Ejection Fraction MOD 2C 57.3 % LV Cardiac Index MOD 2C 2535.7 cm???/min???m??? LV Diastolic Length 2C 9.2 cm LV Systolic Length 2C 7.5 cm LA Volume 77.2 cm??? 18 - 58 / 22 - 52 cm??? LA Volume Index 28.4 cm???/m??? 16 - 28 cm???/m??? M-MODE Aortic Root Diameter MM 3.7 cm LA Systolic Diameter MM 5.5 cm LA Ao Ratio MM 1.5 AV Cusp Separation MM 2.7 cm DOPPLER AV Peak Velocity 95.9 cm/s AV Peak Gradient 3.7 mmHg AV Mean Velocity 69.2 cm/s AV Mean Gradient 2.1 mmHg AV Velocity Time Integral 15.3 cm LVOT Peak Velocity 65.5 cm/s LVOT Peak Gradient 1.7 mmHg LVOT Velocity Time Integral 13.7 cm MV Area PHT 3.7 cm??? Mitral E Point Velocity 72.6 cm/s Mitral A Point Velocity 55.3 cm/s Mitral E to A Ratio 1.3 MV Deceleration Time 204.1 ms TR Peak Velocity 215.7 cm/s TR Peak Gradient 18.6 mmHg Right Ventricular Systolic Press 23.1 mmHg FINDINGS Left Ventricle Severely increased left ventricular wall thickness. Left ventricular cavity size normal. Normal left ventricular systolic function with no obvious regional wall motion abnormalities. Left ventricular ejection fraction is estimated at 55-60 %. Grade 1 diastolic dysfunction. Right Ventricle Mild right ventricular dilatation. Right ventricular systolic pressure within normal limits. Right Atrium Right atrial dilatation. Left Atrium Mild increased left atrial volume. Mildly increased left atrial area. Mitral Valve Structurally normal mitral valve. No mitral stenosis. No evidence for mitral valve prolapse. Mild mitral regurgitation. Aortic Valve Trileaflet aortic valve. No aortic valve stenosis or regurgitation. Tricuspid Valve Structurally normal tricuspid valve. Mild tricuspid regurgitation. Pulmonic Valve Structurally normal pulmonic valve. Trace pulmonic regurgitation. Pericardium No pericardial effusion. Aorta Normal size aortic root and proximal ascending aorta. CONCLUSIONS Technically difficult study. Left ventricular ejection fraction is estimated at 55-60 %. Severe concentric LVH. No obvious LVOT obstruction No obvious regional wall motion abnormality. Mild right ventricular dilatation. RVSP 25 mmHg Mild MR Mild biatrial dilatation Previewed by: Dr Felix Bacon (Electronically Signed) Final Date: 31 Aug 2023 18:38
[2023-09-01] MEDS: ASPIRIN 325 MG TAB PO STA (06:56)
[2023-09-01] MEDS: IV FLUID CONTINUATION 1,000 ML IV ONE (08:50)
[2023-09-01] MEDS: fentaNYL (PF) 50 MCG/ML 2 ML AMP IVP ONE (09:00)
[2023-09-01] MEDS: MIDAZOLAM 2 MG/2 ML VIAL IVP ONE (09:00)
[2023-09-01] MEDS: LIDOCAINE 1% INJ 10MG/ML (20 ML MDV) SQ ONE (09:04)
[2023-09-01] MEDS: VERAPAMIL SYRINGE (5 MG/10 ML) INTRAARTER ONE (09:05)
[2023-09-01] MEDS: HEPARIN SODIUM 1,000 UN/ML (10ML VL) IVP ONE (09:07)
[2023-09-01] MEDS: IOPAMIDOL-370 100ML BTL INJ ONE (09:16)
--- NOTE | 2023-09-01 09:20 | P.CARDCATH ---
Description of Procedure: PROCEDURES PERFORMED: Left heart catheterization, bilateral coronary angiography, ultrasound guided arterial access INDICATION: VT CONSENT:I have discussed the risks, benefits and alternative therapies for the above-mentioned procedure and for both sedation/analgesia as well as necessary blood product administration, if indicated, as they pertain to this patient. The patient has indicated understanding and acceptance of the risks and procedures discussed. PROCEDURE: After the risks, benefits and alternatives of the above mentioned procedure explained in detail with the patient, informed consent was obtained. Patient was taken to the catheterization lab and prepped and draped in usual fashion. Ultrasound guidance was used to assess for arterial access. 1% lidocaine was used to anesthetize the right radial artery. A 6-[place] Lucian sheath was placed in the right radial artery using modified Seldinger technique and ultrasound guidance. Left coronary angiography was performed with a 5-[place] Lucian JL 3.5 catheter and right coronary angiography was performed with a 5-[place] Lucian FR5 catheter in various views. A 5-[place] Lucian FR5 catheter was inserted into the left ventricle and pressure measurements were obtained. The right radial sheath was removed and a TR band was placed with hemostasis achieved. The patient tolerated the procedure well. Patient was transported back to the post catheterization holding area in stable condition. Conscious Sedation: Patient was monitored under the direct supervision of myself for conscious sedation using Versed and fentanyl for a total duration of 12 minutes HEMODYNAMICS: Ao: 108/78 LV: 110/6, LVEDP 16 SELECTIVE CORONARY ARTERIOGRAPHY: LEFT MAIN: The left main is a large caliber vessel which bifurcates into the LAD and circumflex. There is no significant stenosis. LEFT ANTERIOR DESCENDING CORONARY ARTERY: LAD is a large caliber vessel which wraps around to the apex. There are mild luminal irregularities of the LAD. LEFT CIRCUMFLEX CORONARY ARTERY: Left circumflex is a moderate caliber vessel without significant stenosis. RIGHT CORONARY ARTERY: The right coronary artery is a large caliber vessel which gives off a PDA and PLV branch and is the dominant vessel. There is no significant stenosis. FINAL IMPRESSION: 1. Relatively normal coronary arteries other than mild luminal irregularities of the proximal and mid LAD as described above. 2. High normal left sided filling pressures PLAN: 1. Aggressive risk factor modification per most recent ACC/AHA guidelines. 2. Follow-up in the office in 1-2 weeks.
[2023-09-01 10:36] LABS: HCT 44.9 % (39.0-53.0); HGB 15.2 gm/dL (13.0-17.5); MCH 31.1 pg (25.0-35.0); MCHC 33.8 g/dL (31.0-37.0); MCV 91.8 fL (80.0-100.0); Mean Platelet Volume 7.5; Platelet Count 240 k/uL (150-450); RBC 4.89 m/uL (4.30-5.90); RDW 13.1 % (11.5-15.5); WBC 6.4 k/uL (3.8-10.6)
[2023-09-01] MEDS: APIXABAN 5 MG TAB PO SCH (11:23)
--- NOTE | 2023-09-01 11:56 | P.PN ---
Subjective Progress Note Date: 09/01/23 08/31/2023 antiarrhythmics adjusted yesterday including the addition of sotalol. Telemetry reporting no further runs of nonsustained V. tach. Anticoagulated on heparin drip. Eliquis, Multaq and Aldactone on hold. Paroxysmal atrial tachycardia. Echo pending .n.p.o., scheduled for cardiac catheterization today. Denies chest pain, palpitations or shortness of breath. Maintaining O2 sats in the high 90s on room air. Denies lightheadedness, dizziness or focal deficits. 09/01/2023 currently off the unit for cardiac catheterization. Objective - Vital Signs Vital signs: Vital Signs Temp 97.6 F 09/01/23 08:00 Pulse 91 09/01/23 11:24 Resp 16 09/01/23 11:24 BP 105/76 09/01/23 11:24 Pulse Ox 95 09/01/23 11:24 FiO2 Intake & Output 08/31/23 09/01/23 09/01/23 18:59 06:59 18:59 Intake Total 368.00 231.12 225 Output Total 300 Balance 368.00 -68.88 225 Weight 139.1 kg Intake: IV 150 Intake, IV Titration 250.00 231.12 75 Amount Heparin Sod,Pork in 0.45% 250.00 231.12 NaCl 25,000 unit In 0.45 % NaCl 1 250ml.bag @ 7. 0175 UNITS/KG/HR 10 mls/ hr IV .Q24H [facility] Rx#: [id number] Sodium Chloride 0.9% 1, 75 000 ml @ 75 mls/hr IV . [id number] [facility] Rx#:[id number] Oral 118 Output: Urine 300 Other: Voiding Method Toilet Toilet Toilet # Voids 1 1 1 - Labs CBC & Chem 7: 09/02/23 07:49 09/02/23 07:49 Labs: Abnormal Lab Results - Last 24 Hours (Table) 08/31/23 Range/Units 15:32 APTT 68.4 H (22.0-30.0) sec
[2023-09-01 12:14] LABS: ALT 31 U/L (4-49); AST 23 U/L (17-59); African American GFR (CKD) >90 (>60 ml/min/1.73 sqM); Albumin 3.7 g/dL (3.5-5.0); Alkaline Phosphatase 89 U/L (38-126); Anion Gap 5 mmol/L; Blood Urea Nitrogen 13 mg/dL (9-20); Calcium 8.9 mg/dL (8.4-10.2); Carbon Dioxide 23 mmol/L (22-30); Chloride 111 mmol/L (98-107); Glucose 85 mg/dL (74-99); Magnesium 2.3 mg/dL (1.6-2.3); Non-African American GFR(CKD) >90 (>60 ml/min/1.73 sqM); Potassium 4.6 mmol/L (3.5-5.1); Sodium 139 mmol/L (137-145); Total Bilirubin 0.6 mg/dL (0.2-1.3); Total Protein 6.4 g/dL (6.3-8.2)
--- NOTE | 2023-09-01 13:40 | P.PN ---
Subjective HISTORY OF PRESENT ILLNESS: Patient examined this morning at the bedside. Patient currently denies chest pain or pressure. He denies shortness of breath. He underwent cardiac catheterization this morning revealing relatively normal coronary arteries other than mild luminary irregularities of the proximal and mid LAD. High normal left-sided filling pressures. Patient remains on metoprolol and sotalol. No further episodes of ventricular tachycardia noted. PHYSICAL EXAM: VITAL SIGNS: Reviewed. GENERAL: Well-developed in no acute distress. NECK: Supple. No JVD or thyromegaly LUNGS: Respirations even and unlabored. Lungs essentially clear to auscultation bilaterally. HEART: Regular rate and rhythm. S1 and S2 heard. EXTREMITIES: Normal range of motion. No clubbing or cyanosis. Peripheral pulses intact. No lower extremity edema ASSESSMENT: Ventricular tachycardia from RV apex Paroxysmal atrial fibrillation with previous ablation Atrial tachycardia with 2-1 conduction Recent onset of presyncope with palpitations RV cardiomyopathy with RVE on echo Normal coronary arteries, per cardiac catheterization 09/01/2023 PLAN: Continue current cardiac medications Resume Eliquis Recommend Assure external defibrillator at discharge secondary to ventricular tachycardia to prevent sudden cardiac Recommend outpatient cardiac MRI secondary to RV enlargement and RV sustained ventricular tachycardia with presyncope, possible ARCD Patient was instructed not to drive postdischarge for at least 2-[address] Hughes Consider eventual VT ablation Continue to monitor patient for additional 24 hours Possible discharge home tomorrow Nurse practitioner note has been reviewed by physician. Signing provider agrees with the documented findings, assessment, and plan of care documented by MANAGER [employer] as a scribe. Objective - Vital Signs Vital signs: Vital Signs Temp 97.6 F 09/01/23 08:00 Pulse 91 09/01/23 11:24 Resp 16 09/01/23 11:24 BP 105/76 09/01/23 11:24 Pulse Ox 95 09/01/23 11:24 FiO2 Intake & Output 08/31/23 09/01/23 09/01/23 18:59 06:59 18:59 Intake Total 368.00 231.12 225 Output Total 300 Balance 368.00 -68.88 225 Weight 139.1 kg Intake: IV 150 Intake, IV Titration 250.00 231.12 75 Amount Heparin Sod,Pork in 0.45% 250.00 231.12 NaCl 25,000 unit In 0.45 % NaCl 1 250ml.bag @ 7. 0175 UNITS/KG/HR 10 mls/ hr IV .Q24H [facility] Rx#: [id number] Sodium Chloride 0.9% 1, 75 000 ml @ 75 mls/hr IV . [id number] [facility] Rx#:[id number] Oral 118 Output: Urine 300 Other: Voiding Method Toilet Toilet Toilet # Voids 1 1 1 - Labs CBC & Chem 7: 09/01/23 09:53 09/01/23 09:53 Labs: Abnormal Lab Results - Last 24 Hours (Table) 08/31/23 09/01/23 Range/Units 15:32 09:53 APTT 68.4 H (22.0-30.0) sec Chloride 111 H (98-107) mmol/L
[2023-09-02 08:15] LABS: HCT 47.6 % (39.0-53.0); HGB 15.8 gm/dL (13.0-17.5); MCHC 33.2 g/dL (31.0-37.0); MCV 93.2 fL (80.0-100.0); Mean Platelet Volume 7.2; Platelet Count 242 k/uL (150-450); RBC 5.11 m/uL (4.30-5.90); RDW 12.9 % (11.5-15.5)
[2023-09-02 08:31] LABS: ALT 37 U/L (4-49); AST 27 U/L (17-59); African American GFR (CKD) >90 (>60 ml/min/1.73 sqM); Alkaline Phosphatase 83 U/L (38-126); Anion Gap 5 mmol/L; Blood Urea Nitrogen 13 mg/dL (9-20); Calcium 9.3 mg/dL (8.4-10.2); Carbon Dioxide 24 mmol/L (22-30); Chloride 110 mmol/L (98-107); Glucose 96 mg/dL (74-99); Magnesium 2.2 mg/dL (1.6-2.3); Non-African American GFR(CKD) >90 (>60 ml/min/1.73 sqM); Potassium 4.6 mmol/L (3.5-5.1); Sodium 139 mmol/L (137-145); Total Bilirubin 0.6 mg/dL (0.2-1.3); Total Protein 6.9 g/dL (6.3-8.2)
[2023-09-02 09:44] VITALS: BP 111/77; RESP 14; TEMP 98
[2023-09-02 10:34] VITALS: PULSE 88
--- NOTE | 2023-09-02 16:22 | P.DS ---
Providers Date of admission: 08/31/23 08:23 Expected date of discharge: 09/02/23 Attending physician: Jer Gaitan MD Consults: 08/28/23 14:27 Consult Physician Urgent Consulting Provider: [facility] Consult Reason/Comments: afib, vtach Do you want consulting provider notified?: Yes Primary care physician: Jer Gaitan MD Hospital Course: Final Diagnoses: Chronic atrial fibrillation, RVR ,prior ablation, currently sinus rhythm Nonsustained ventricular tachycardia Paroxysmal atrial atrial fibrillation -atrial tachycardia RV cardiomyopathy with RVE on echo reported per cardiology Cardiac catheterization reporting normal coronary arteries Morbid obesity, BMI 42 Hospital course:Antiarrhythmics adjusted yesterday including the addition of sotalol. Telemetry reporting no further runs of nonsustained V. tach. Anticoagulated on heparin drip. Eliquis, Multaq and Aldactone on hold. Paroxysmal atrial tachycardia. Echo pending .n.p.o., scheduled for cardiac catheterization today. Denies chest pain, palpitations or shortness of breath. Maintaining O2 sats in the high 90s on room air. Denies lightheadedness, dizziness or focal deficits. 09/01/2023 currently off the unit for cardiac catheterization. 09/02/2023 completed cardiac catheterization yesterday, reporting relatively normal coronary arteries other than mild luminal irregularities of the proximal and mid LAD, high normal left-sided filling pressures. Maintained on metoprolol and sotalol. sitting up in chair, denies chest pain, palpitations or shortness of breath. Reports he ambulated in the hallway, tolerated exertion well. Denies lightheadedness, dizziness or focal deficits. Denies nausea vomiting or diarrhea. Denies diaphoresis. LifeVest applied last night. Patient has been cleared for discharge by cardiology. Patient will be discharged home today in stable condition with guarded prognosis. Cardiac MRI will be scheduled outpatient as per cardiology. The impression and plan of care has been dictated as directed. : I performed a history and examination of this patient, discussed the same with the dictator. I agree with the dictator's note ,documented as a scribe. Any additional findings or plans will be noted. Patient Condition at Discharge: Stable Plan - Discharge Summary Discharge Rx Participant: No New Discharge Prescriptions: New Sotalol [Betapace] 80 mg PO BID #180 tablet Metoprolol Succinate [Toprol XL] 50 mg PO BID #180 tab Magnesium Oxide [Mag-Ox] 400 mg PO DAILY #90 tablet Spironolactone [Aldactone] 12.5 mg PO DAILY #30 tab Continue Apixaban [Eliquis] 5 mg PO BID Discontinued Spironolactone [Aldactone] 25 mg PO DAILY Dronedarone [Multaq] 400 mg PO BID-W/MEALS No Action Sildenafil Citrate 50 mg PO DAILY PRN PRN Reason: E.D. Discharge Medication List Apixaban [Eliquis] 5 mg PO BID 05/15/19 [History] Sildenafil Citrate 50 mg PO DAILY PRN 08/28/23 [History] Magnesium Oxide [Mag-Ox] 400 mg PO DAILY #90 tablet 09/02/23 [Rx] Metoprolol Succinate [Toprol XL] 50 mg PO BID #180 tab 09/02/23 [Rx] Sotalol [Betapace] 80 mg PO BID #180 tablet 09/02/23 [Rx] Spironolactone [Aldactone] 12.5 mg PO DAILY #30 tab 09/02/23 [Rx] Follow up Appointment(s)/Referral(s): Rober Hughes MD [STAFF PHYSICIAN] - 09/13/23 10:30 am Jer Gaitan MD [Primary Care Provider] - 09/04/23 11:15 am Patient Instructions/Handouts: A-fib (Atrial Fibrillation) (ED), Syncope (ED), Wearable Cardioverter Defibrillator (DC) Activity/Diet/Wound Care/Special Instructions: Cardiac MRI -outpatient-to be arranged by cardiology Life[employer]est No driving for 2 to 3 months as per cardiology Discharge Disposition: HOME SELF-CARE
--- NOTE | 2023-09-02 18:29 | P.PN ---
Subjective Patient has done well overnight. No chest discomfort no shortness of breath He did have mild dizziness but this was not accompanied by any ventricular tachycardia His QT interval is normal, less than 400 ms absolute QT interval He remains on 2-1 atrial tachycardia with lengthening of the atrial cycle length but the QT interval was completely normal He has tolerated his medications well. Blood pressure is normal 117/59 mmHg Heart sounds normal no murmurs Breath sounds are clear no rhonchi no crackles Impression Recurrent ventricular tachycardia originating from the RV apex Atrial fibrillation and 2-1 atrial tachycardia History of paroxysmal atrial fibrillation status post ablation in the past Right ventricular enlargement on 2D echo Normal coronary arteries Normal white count normal hemoglobin Sodium 139, normal potassium Normal creatinine Plan Discharge home today on metoprolol succinate 50 mg twice daily as well as sot alol 80 mg twice daily Continue Eliquis Continue spironolactone 12.5 mg p.o. daily Continue mag oxide 400 mg p.o. daily Cardiac MRI to assess the right ventricular size and function and look for any d elayed enhancement Consideration for VT ablation thereafter Consideration for atrial tachycardia ablation Objective - Vital Signs Vital signs: Vital Signs Temp 98.0 F 09/02/23 08:00 Pulse 88 09/02/23 08:00 Resp 14 09/02/23 08:00 BP 111/77 09/02/23 08:00 Pulse Ox 96 09/02/23 08:00 FiO2 Intake & Output 09/01/23 09/02/23 09/02/23 18:59 06:59 18:59 Intake Total 937 712 Output Total 300 300 Balance 937 -300 412 Weight 139.1 kg Intake: IV 150 Intake, IV Titration 75 Amount Sodium Chloride 0.9% 1, 75 000 ml @ 75 mls/hr IV . [id number] [facility] Rx#:[id number] Oral 712 712 Output: Urine 300 300 Other: Voiding Method Toilet Toilet Toilet # Voids 2 - Labs CBC & Chem 7: 09/02/23 07:49 09/02/23 07:49 Labs: Abnormal Lab Results - Last 24 Hours (Table) 09/02/23 Range/Units 07:49 Chloride 110 H (98-107) mmol/L
== END 2023-09-02 15:20 | disposition home or self-care (01) | DRG 287 ==
LOC: EC 12:38 → 3SCARD 14:27 → OBSVTOIN 08-31 08:23
PROVIDERS: ADMIT Family Medicine; ATTEND Family Medicine
PROC: B2111ZZ Fluoroscopy of Multiple Coronary Arteries using Low Osmolar Contrast (ICD-10-PCS; principal; 2023-09-02)
PROC: 4A023N7 Measurement of Cardiac Sampling and Pressure, Left Heart, Percutaneous Approach (ICD-10-PCS; 2023-09-02)
PROC: B2151ZZ Fluoroscopy of Left Heart using Low Osmolar Contrast (ICD-10-PCS; 2023-09-02)
DX: I48.19 Other persistent atrial fibrillation (principal); Z68.41 Body mass index [BMI] 40.0-44.9, adult; I47.19 Other supraventricular tachycardia; E66.01 Morbid (severe) obesity due to excess calories; E78.5 Hyperlipidemia, unspecified; I10 Essential (primary) hypertension; I42.9 Cardiomyopathy, unspecified; Z79.01 Long term (current) use of anticoagulants; Z79.899 Other long term (current) drug therapy
CPT/HCPCS: 36415; 71046; 76937; 80048; 80053; 81003; 83605; 83735; 83880; 84443; 84484; 85025; 85027; 85610; 85730; 93005; 93306; 93458; 99285

== ENCOUNTER → 2023-10-08 | Outpatient (CLI) | payer BC ==
[2023-10-08 18:20] LABS: HCT 39.2 % (39.6-50.0); HGB 13.6 g/dL (13.0-17.0); MCH 31.2 pg (27.0-32.0); MCHC 34.7 g/dL (32.0-37.0); MCV 89.9 FL (80.0-97.0); Mean Platelet Volume 9.4 FL (9.5-12.2); NRBC Per 100 WBC 0 X 10*3/uL (0.00-0.01); Platelet Count 235 X 10*3/uL (140-440); RBC 4.36 X 10*6/uL (4.40-5.60); RDW 13.1 % (11.5-14.5); WBC 7.41 X 10*3/uL (4.50-10.00)
[2023-10-08 19:15] LABS: Blood Urea Nitrogen 14.9 mg/dL (9.0-27.0); Carbon Dioxide 22.4 mmol/L (21.6-31.8); Chloride 109 mmol/L (96-109); Potassium 4.4 mmol/L (3.5-5.5); Sodium 142 mmol/L (135-145)
== END | disposition home or self-care (01) ==
LOC: LABPAT 13:43
PROVIDERS: ATTEND Internal Medicine Clinical Cardiac Electrophysiology
DX: Z01.812 Encounter for preprocedural laboratory examination (principal); I48.19 Other persistent atrial fibrillation
CPT/HCPCS: 80051; 82565; 84520; 85027

== ENCOUNTER 2023-11-29 08:46 | Observation (INO) | payer BC ==
[2023-11-29] MEDS: SODIUM CHLORIDE 0.9% 1,000 ML IV SCH (09:24)
[2023-11-29] MEDS: IV FLUID CONTINUATION 1,000 ML IV ONE (09:26)
[2023-11-29 09:45] LABS: Basophils % (A) 1 %; Eosinophils # (A) 0.1 k/uL (0-0.7); Eosinophils % (A) 2 %; HCT 42.7 % (39.0-53.0); HGB 14.3 gm/dL (13.0-17.5); Lymphocytes # (A) 1.8 k/uL (1.0-4.8); Lymphocytes % (A) 36 %; MCH 31.4 pg (25.0-35.0); MCHC 33.5 g/dL (31.0-37.0); MCV 93.6 fL (80.0-100.0); Mean Platelet Volume 6.8; Monocytes # (A) 0.3 k/uL (0-1.0); Monocytes % (A) 6 %; Neutrophils # (A) 2.7 k/uL (1.3-7.7); Neutrophils % (A) 53 %; Platelet Count 235 k/uL (150-450); RBC 4.56 m/uL (4.30-5.90); RDW 13.4 % (11.5-15.5); WBC 5.1 k/uL (3.8-10.6)
[2023-11-29 09:50] LABS: African American GFR (CKD) >90 (>60 ml/min/1.73 sqM); Anion Gap 6 mmol/L; Blood Urea Nitrogen 14 mg/dL (9-20); Calcium 9.5 mg/dL (8.4-10.2); Carbon Dioxide 23 mmol/L (22-30); Chloride 111 mmol/L (98-107); Glucose 104 mg/dL (74-99); Non-African American GFR(CKD) >90 (>60 ml/min/1.73 sqM); Potassium 4.3 mmol/L (3.5-5.1); Sodium 140 mmol/L (137-145)
[2023-11-29] MEDS ORDERED: LIDOCAINE 1% (10MG/ML) FOR IV START INTRADERMA PRN (10:17)
[2023-11-29] MEDS ORDERED: MIDAZOLAM 2 MG/2 ML VIAL ONE (11:38)
[2023-11-29] MEDS ORDERED: fentaNYL (PF) 50 MCG/ML 2 ML AMP ONE (11:38)
[2023-11-29] MEDS ORDERED: ISOPROTERENOL 250 MCG/1.25 ML SYR IV ONE (11:38)
[2023-11-29] MEDS ORDERED: LIDOCAINE 1% INJ 10MG/ML (20 ML MDV) ONE (11:56)
[2023-11-29] MEDS: LIDOCAINE 1% INJ 10MG/ML (20 ML MDV) SQ ONE (12:24)
--- NOTE | 2023-11-29 14:48 | P.HPCAR ---
History of Present Illness This is Dr. Hughes dictating an H/P on this patient The patient was interviewed and examined IMPRESSION / ASSESSMENT: Wide-complex tachycardia left bundle branch block pattern, with RVR with a cycle length of about 300 ms Associated with near syncope, multiple episodes Treated with sotalol, and metoprolol Normal coronary arteries Normal 2D echo and Doppler study, normal cardiac MRI PLAN: Diagnostic EP study to look for any inducible atrial tachycardia/SVT with left bundle branch block aberrancy versus right ventricular VT Patient held sotalol and metoprolol for 2 days prior to the procedure HPI Patient was admitted to the hospital with episodes of recurrent near syncope with wide-complex tachycardia of a left bundle branch block type with a cycle length of about 300 ms He underwent coronary angiography which did not reveal any coronary obstruction or occlusive disease His echo showed normal LV and RV size and function Subsequently his MRI was completely normal without any delayed enhancement or RV or LV enlargement On sotalol he has not had any further breakthrough episodes He is being admitted to the for evaluation management of this wide-complex tachycardia, possible SVT with left bundle aberrancy versus right ventricular VT and possible ablation He has not had any episodes of syncope but yesterday he had a brief episode of dizziness but could not feel any palpitations ROS: No fever chills or rigors, no cough, phlegm or expectoration, no nausea, vomiting or diarrhea, no hematuria, dysuria, no musculoskeletal complaints, no strokes or seizures, no skin lesions. EXAMINATION: Pulse rate 62 beats minute, respirations 18, afebrile and blood pressure 132/82 mmHg Heart sounds are normal no murmurs or gallop no rub Breath sounds are clear Abdomen soft No JVD REVIEW OF LABS, ECG & MEDICAL DATA White count 5.1 thousand, hematocrit 42.7, platelet count 235,000 Electrolytes normal normal sodium and potassium Normal BUN and creatinine Normal TSH Physical Exam Vitals: Vital Signs Temp Pulse Pulse Resp BP Pulse Ox 11/29/23 14:47 147 H 18 187/131 95 11/29/23 14:32 142 H 18 211/152 95 11/29/23 09:24 98.3 F 62 18 132/82 95 Intake and Output 11/28/23 11/29/23 11/29/23 22:59 06:59 14:59 Intake Total 400 Balance 400 Intake: IV 400 Other: Weight 141.1 kg Past Medical History Past Medical History: Atrial Fibrillation, Hyperlipidemia, Hypertension Additional Past Medical History / Comment(s): PANCREATITIS 01/01/14, see Dr Hughes H & P History of Any Multi-Drug Resistant Organisms: None Reported Past Surgical History: Cardiac Ablation, Cholecystectomy Additional Past Surgical History / Comment(s): 01/01/14, cardioversion Past Anesthesia/Blood Transfusion Reactions: Previous Problems w/ Anesthesia, Motion Sickness, Postoperative Nausea & Vomiting (PONV) Additional Past Anesthesia/Blood Transfusion Reaction / Comment(s): MORPHINE CAUSES AGITATION, RESTLESSNESS, INSOMNIA Past Psychological History: No Psychological Hx Reported Smoking Status: Never smoker Past Alcohol Use History: None Reported Past Drug Use History: None Reported - Past Family History Mother Family Medical History: Congestive Heart Failure (CHF), Diabetes Mellitus Physical Examination Vital Signs Temp Pulse Pulse Resp BP Pulse Ox 11/29/23 14:47 147 H 18 187/131 95 11/29/23 14:32 142 H 18 211/152 95 11/29/23 09:24 98.3 F 62 18 132/82 95 Intake and Output 11/28/23 11/29/23 11/29/23 22:59 06:59 14:59 Intake Total 400 Balance 400 Intake: IV 400 Other: Weight 141.1 kg Results 11/29/23 09:15 11/29/23 09:15 CBC 11/29/23 Range/Units 09:15 WBC 5.1 (3.8-10.6) k/uL RBC 4.56 (4.30-5.90) m/uL Hgb 14.3 (13.0-17.5) gm/dL Hct 42.7 (39.0-53.0) % Plt Count 235 (150-450) k/uL Comprehensive Metabolic Panel 11/29/23 Range/Units 09:15 Sodium 140 (137-145) mmol/L Potassium 4.3 (3.5-5.1) mmol/L Chloride 111 H (98-107) mmol/L Carbon Dioxide 23 (22-30) mmol/L BUN 14 (9-20) mg/dL Creatinine 0.75 (0.66-1.25) mg/dL Glucose 104 H (74-99) mg/dL Calcium 9.5 (8.4-10.2) mg/dL Current Medications Generic Name Dose Route Start Last Admin Trade Name Freq PRN Reason Stop Dose Admin Apixaban 5 mg 11/29/23 21:00 Apixaban 5 Mg Tab PO BID [facility] Protocol Sodium Chloride 1,000 mls @ 20 mls/hr 11/28/23 15:00 11/29/23 09:24 Saline 0.9% IV 12/28/23 14:59 20 mls/hr .Q24H [facility] Administration Lactated Ringer's 1,000 mls @ 20 mls/hr 11/29/23 10:17 Lactated Ringers IV 12/29/23 10:16 .Q24H [facility] Lidocaine HCl 0.1 ml 11/29/23 10:17 Lidocaine 1% (10mg/Ml) For Iv Start INTRADERMA 12/29/23 10:16 PER PROTOCOL PRN IV Start Magnesium Oxide 400 mg 11/30/23 09:00 Magnesium Oxide 400 Mg Tab PO DAILY [facility] Metoprolol Succinate 50 mg 11/29/23 21:00 Metoprolol Succinate (Er) 50 Mg Tab.Er.24h PO BID [facility] Sotalol HCl 80 mg 11/29/23 21:00 Sotalol 80 Mg Tab PO BID [facility] Spironolactone 12.5 mg 11/30/23 09:00 Spironolactone 25 Mg Tab PO DAILY [facility] Intake and Output 11/28/23 11/29/23 11/29/23 22:59 06:59 14:59 Intake Total 400 Balance 400 Intake: IV 400 Other: Weight 141.1 kg Patient Weight 11/30/23 06:59 Weight 141.1 kg 11/29/23 09:15 11/29/23 09:15
--- NOTE | 2023-11-29 14:56 | P.EPPROC ---
- EP Procedure Note Electrophysiology Procedure Note: Diagnosis Sustained recurrent wide-complex tachycardia with RVR, cycle length of 300 ms, associated with near syncope Final diagnosis Wide-complex tachycardia with a left bundle branch block morphology with a short RNS time of less than 100 ms Noninducible any SVT/VT at EP study No inducible SVT with left bundle branch block aberrancy No inducible right ventricular VT Details Patient was brought to the EP lab in a fasting state. Written informed consent was obtained prior to the procedure. The right middle groins were prepped and draped as a protocol and diagnostic catheters were positioned in the high right atrium coronary sinus right ventricular apex, right ventricular outflow tract and His bundle area. Sotalol metoprolol had been held for over 48 hours. Diagnostic EP study was performed with stimulation from the high right atrium and from 2 sites in the right ventricle both on and off Isopril Cycle length during sinus rhythm 1106 ms, [place] interval 185 ms, QRS 105 ms and QT interval 449 ms AH 187 ms and HV interval 43 ms At baseline, burst stimulation from the RV apex was performed from 400 ms down to 200 ms and similarly from the RVOT. No inducible VT at baseline Ventricular extra stimulation performed from the RV septum and RV apex up to triple extrastimuli and including long short sequence No inducible VT Once the coronary sinus was calculated the patient would have antegrade conduction that appeared to be going down the slow pathway but without any spontaneous inducible AV sri reentry High-dose Isopril was used and both on as well as off Isopril ventricular stimulation was performed per stimulation including up to triple extrastimuli from 2 sites in the ventricle No inducible VT Thereafter atrial stimulation was performed. Straight atrial pacing was performed atrial extra stimulation was performed There was evidence of slow pathway conduction at a pacing cycle length of 360 ms without induction of any SVT Up to double extrastimuli were performed from the coronary sinus and from the high right atrium without induction of any SVT with left bundle branch block aberrancy Testing was performed during the washout period of Isopril and once again no inducible tachycardia was noted All catheters were then removed Patient was transferred back to telemetry Venous access sites were closed with Vascade closure device
--- NOTE | 2023-11-29 14:59 | P.PRLE ---
RE: Jer Dimasr Jer Mr. Dimas underwent a diagnostic EP study to look for any supraventricular tachycardia with left bundle branch block aberrant conduction versus right ventricular VT. A detailed EP study was performed, both on and off high-dose Isopril, but no arrhythmias were induced. His coronary arteries are normal, cardiac MRI is completely normal. This could represent either SVT with left bundle aberrancy or RV VT, although it would be very unusual to have RV VT from the RV apex with a structurally normal heart. At this time I would recommend continuing sotalol for suppressive therapy 80 mg twice daily along with metoprolol. I will perform an exercise stress test to look for any exercise-induced VT and if this is normal I will discontinue the LifeVest and he may go back to driving. Thank you for entrusting me with the care of the patient Warm regards Sincerely Rober Hughes
[2023-11-29] MEDS ORDERED: ACETAMINOPHEN TAB 325 MG TAB PO PRN (15:01)
[2023-11-29] MEDS: SOTALOL 80 MG TAB PO STA (15:12)
[2023-11-29] MEDS: METOPROLOL TARTRATE 50 MG TAB PO STA (15:13)
[2023-11-29] MEDS: LACTATED RINGERS 1,000 ML IV SCH (18:39)
[2023-11-29] MEDS: SOTALOL 80 MG TAB PO SCH (20:38)
[2023-11-29] MEDS: APIXABAN 5 MG TAB PO SCH (20:38)
[2023-11-30] MEDS: METOPROLOL SUCCINATE (ER) 50 MG TAB.ER.24H PO SCH ×2 (06:05→11:01)
[2023-11-30] MEDS: SODIUM CHLORIDE 0.9% 500 ML 500 ML IV ONE (06:32)
[2023-11-30] MEDS: MAGNESIUM OXIDE 400 MG TAB PO SCH (08:10)
[2023-11-30] MEDS: SPIRONOLACTONE 25 MG TAB PO SCH (08:40)
[2023-11-30] MEDS: ACETAMINOPHEN IV (For NPO) 1,000 MG in EMPTY BAG 1 BAG IVPB ONE (15:14)
[2023-11-30] MEDS: SODIUM CHLORIDE 0.9% 1,000 ML IV SCH (17:08)
[2023-12-01 04:52] VITALS: RESP 16; TEMP 97.6
[2023-12-01] MEDS: SOTALOL 80 MG TAB PO ONE (05:58)
[2023-12-01] MEDS: APIXABAN 5 MG TAB PO ONE (05:58)
[2023-12-01] MEDS: SODIUM CHLORIDE 0.9% 1,000 ML IV SCH (06:24)
[2023-12-01 11:50] VITALS: BP 94/66; PULSE 74
--- NOTE | 2023-12-02 11:52 | P.DS ---
Providers Date of admission: 12/01/23 11:30 Attending physician: Rober Hughes Primary care physician: Jer Gaitan MD Hospital Course: Jer Dimas was admitted for evaluation management of wide-complex tachycardia that resembles right ventricular VT His 2D echo was normal coronary arteries are normal and cardiac MRI was completely normal without any delayed enhancement or evidence for ARVC He underwent a diagnostic EP study which did not reveal any inducible VT There was no inducible atrial tachycardia with aberrant conduction either We had used high-dose Isopril through the procedure and there was evidence of slow pathway conduction antegradely but without evidence for AV sri reentry Subsequently he developed atrial fibrillation and remained in atrial fibrillation despite resuming sotalol and metoprolol both Therefore he underwent electrical cardioversion yesterday morning He maintains sinus rhythm He was monitored for several hours and then discharged home yesterday afternoon On examination his heart sounds are normal and regular Breath sounds are clear His absolute QT interval was normal postprocedure Impression Wide-complex tachycardia consistent with VT No inducible VT or SVT with left bundle aberrancy at EP study Atrial fibrillation, sustained, persistent Status post electrical cardioversion for sustained atrial fibrillation Back on sotalol and metoprolol and other cardiac medications and Eliquis Plan discharge home Exercise stress test on sotalol next week he will be scheduled in the office Patient Condition at Discharge: Fair Plan - Discharge Summary New Discharge Prescriptions: Continue Apixaban [Eliquis] 5 mg PO BID Sotalol [Betapace] 80 mg PO BID #180 tablet Sildenafil Citrate 50 mg PO DAILY PRN PRN Reason: E.D. Magnesium Oxide [Mag-Ox] 400 mg PO DAILY #90 tablet Spironolactone [Aldactone] 12.5 mg PO DAILY #30 tab No Action Metoprolol Succinate (ER) [Toprol Xl] 25 mg PO BID Discharge Medication List Apixaban [Eliquis] 5 mg PO BID 05/15/19 [History] Sildenafil Citrate 50 mg PO DAILY PRN 08/28/23 [History] Magnesium Oxide [Mag-Ox] 400 mg PO DAILY #90 tablet 09/02/23 [Rx] Sotalol [Betapace] 80 mg PO BID #180 tablet 09/02/23 [Rx] Spironolactone [Aldactone] 12.5 mg PO DAILY #30 tab 09/02/23 [Rx] Metoprolol Succinate (ER) [Toprol Xl] 25 mg PO BID 12/01/23 [History] Follow up Appointment(s)/Referral(s): Rober Hughes MD [STAFF PHYSICIAN] - 1 Week (Office will call you with stress test appointment. Take Toprol and Sotolol the day of your test) Patient Instructions/Handouts: Cardioversion (GEN), Cardiac Ablation (DC) Activity/Diet/Wound Care/Special Instructions: Post EP study - Ablation instructions 1. Keep access sites dry for 2 days. 2. No heavy lifting or straining for 2 days. 3. Avoid bending the hips repeatedly for 2 days. 4. You may go up and down stairs slowly Call if the following is noted 1. Bleeding, increasing swelling or pain at the access sites. 2. Increasing chest discomfort, especially upon taking a deep breath. 3. Increasing shortness of breath, at rest or with exertion. 4. Undue cough / phlegm 5. Difficulty or pain while swallowing. 6. Pain or change in color in the extremities. 7. Fever, chills, rigors. 8. Increasing headache or neurologic symptoms. 9. Dizziness, fainting, palpitations please call [employer] student services representative to return life vest (yuly [phone]) Discharge Disposition: HOME SELF-CARE
--- NOTE | 2023-12-02 11:53 | P.EPPROC ---
- EP Procedure Note Electrophysiology Procedure Note: Diagnosis Sustained atrial fibrillation/persistent after diagnostic EP study, unresponsive to oral sotalol 80 mg twice daily Suboptimal rate control despite sotalol 80 mg twice daily and metoprolol, on Eliquis Occasional ventricular couplets and triplets noted during atrial fibrillation Result Successful electrical cardioversion with a 200 J biphasic shock in the AP configuration to sinus rhythm Details A 200 J biphasic shock was used to convert the patient to sinus rhythm plascencia ccessfully Twelve-lead EKG on sotalol 80 mg twice daily, post cardioversion shows normal QT interval during sinus Absolute QT interval is less than 420 ms
== END 2023-12-01 12:30 | disposition home or self-care (01) ==
LOC: CATHEP 08:46 → 6NMEDSUR 14:32 → CATHEP 12-01 11:30 → 6NMEDSUR 12-01 11:30
PROVIDERS: ADMIT Internal Medicine Clinical Cardiac Electrophysiology; ATTEND Internal Medicine Clinical Cardiac Electrophysiology
DX: I47.20 Ventricular tachycardia, unspecified (principal); I44.7 Left bundle-branch block, unspecified; I48.19 Other persistent atrial fibrillation; R55 Syncope and collapse; I10 Essential (primary) hypertension; E78.5 Hyperlipidemia, unspecified; Z79.899 Other long term (current) drug therapy
CPT/HCPCS: 80048; 84443; 85025; 86850; 86900; 86901; 92960; 93005; 93620; 93623